=== PATIENT | female | born 1995 | race Caucasian/White ===

== ENCOUNTER 2022-03-23 06:00 | Day surgery (SDC) | payer BC ==
[2022-03-23] MEDS ORDERED: OXYMETAZOLINE HCL 0.05% 15ML NAS ONE (06:37)
[2022-03-23] MEDS ORDERED: Ringers Lactate 1,000 ML IV ONE (06:37)
[2022-03-23] MEDS: OXYMETAZOLINE HCL 0.05% 15ML NAS ONE ×2 (06:47→07:30)
[2022-03-23] MEDS ORDERED: LIDOCAINE 1% W/EPI 1:100,000 30 ML VIAL ONE (06:55)
[2022-03-23] MEDS ORDERED: Mastisol Adhesive Liq ONE (07:06)
[2022-03-23] MEDS ORDERED: CELECOXIB 100 MG CAPSULE ONE (07:10)
[2022-03-23] MEDS ORDERED: ACETAMINOPHEN 500 MG TAB ONE (07:11)
[2022-03-23] MEDS ORDERED: MIDAZOLAM HCL 2 MG/2 ML INJ ONE (07:14)
[2022-03-23 07:15] LABS: Urine Specific Gravity/Preg >1.030 (1.005-1.030)
[2022-03-23] MEDS ORDERED: LIDOCAINE 2% MPF 5 ML VIAL ONE (07:25)
[2022-03-23] MEDS ORDERED: dexAMETHasone 10 MG/ML VIAL ONE (07:25)
[2022-03-23] MEDS ORDERED: ONDANSETRON 4 MG/2 ML VIAL ONE ×2 (07:25→08:00)
[2022-03-23] MEDS ORDERED: propofoL 200 MG/20 ML VIAL IV ONE (07:25)
[2022-03-23] MEDS ORDERED: FENTANYL CITR 100 MCG/2 ML ONE (07:25)
[2022-03-23] MEDS ORDERED: KETOROLAC 30 MG/ML INJ ONE (07:47)
[2022-03-23] MEDS: FENTANYL CITR 100 MCG/2 ML ONE ×2 (07:57→08:02)
--- NOTE | 2022-03-23 07:59 | P.OP ---
Night Time Nanny: NONE,NONE Preoperative diagnosis: nasal fracture Postoperative diagnosis: same Primary procedure: closed nasal reduction without stablization Anesthesia: general Estimated blood loss: nil Specimen: none Findings: left laterally displaced NB, right mildly medial displaced NB Operative Technique: After adequate plane of anesthesia, the patient was positioned supine. The bilateral nasal cavity was packed with Afrin-soaked pledgets for several minutes to aid in hemostasis. The nose is examined and the right nasal fracture was noted to be significantly laterally displaced resulting in deformity of the dorsum. External pressure was applied to the nasal bone until a click was heard and palpated and inspection revealed adequate reduction of the fracture. With gentle palpation, the reduction was felt to be appropriate. With gentle palpation of the right side, the bone was mildly medially displaced. A Hurley elevator was placed within the right nasal cavity and used to reduce this bone fragment. Afrin-soaked pledgets were again applied to the nasal cavity to aid in hemostasis. After several minutes they were removed and the nasal cavity was examined. There was no significant bleeding. When the patient's reported history of allergy or sensitivity to adhesives, no external dressing was applied. The patient was then returned to care of anesthesia for awakening extubation by anesthesia and transportation to the recovery room in stable condition. Complications: None Implants: none Fluids & blood products: see anesthesia record Transferred to: Recovery Room Condition: Good
[2022-03-23 08:22] VITALS: BP 132/82; TEMP 97.5; O2SAT 96
[2022-03-23] MEDS ORDERED: TRAMADOL HCL 50 MG TAB ONE (08:30)
== END 2022-03-23 08:52 | disposition home or self-care (01) ==
LOC: OR 06:00
PROVIDERS: ATTEND Otolaryngology
PROC: 0NSBXZZ Reposition Nasal Bone, External Approach (ICD-10-PCS; principal; 2022-03-23 07:30)
DX: S02.2XXD Fracture of nasal bones, subsequent encounter for fracture with routine healing (principal); R03.0 Elevated blood-pressure reading, without diagnosis of hypertension; E66.3 Overweight
CPT/HCPCS: 81025; 21315; J2704; J2001; J2250; J3010 ×2; J1100; J7120; J2405 ×2

== ENCOUNTER 2022-08-20 12:16 | Day surgery (SDC) | payer BC ==
[2022-08-20] MEDS: FENTANYL CITR 100 MCG/2 ML ONE ×3 (12:20→14:50)
[2022-08-20] MEDS ORDERED: Ringers Lactate 1,000 ML IV ONE (12:47)
[2022-08-20 13:42] LABS: Urine Specific Gravity/Preg >1.030 (1.005-1.030)
[2022-08-20] MEDS ORDERED: LIDOCAINE 1% MPF 5 ML VIAL ONE (14:57)
[2022-08-20] MEDS ORDERED: propofoL 200 MG/20 ML VIAL IV ONE ×2 (14:57)
[2022-08-20] MEDS ORDERED: LIDOCAINE VISCOUS 2% SOLN 15 ML UDC ONE (14:57)
[2022-08-20 16:09] VITALS: O2SAT 100
[2022-08-20 16:12] VITALS: BP 129/83; TEMP 97.8
== END 2022-08-20 14:00 | disposition home or self-care (01) ==
LOC: OR 12:16
PROVIDERS: ATTEND Surgery
PROC: 0DB68ZX Excision of Stomach, Via Natural or Artificial Opening Endoscopic, Diagnostic (ICD-10-PCS; 2022-08-20)
PROC: 0DB38ZX Excision of Lower Esophagus, Via Natural or Artificial Opening Endoscopic, Diagnostic (ICD-10-PCS; 2022-08-20)
PROC: 0DB78ZX Excision of Stomach, Pylorus, Via Natural or Artificial Opening Endoscopic, Diagnostic (ICD-10-PCS; 2022-08-20)
PROC: 0DB28ZX Excision of Middle Esophagus, Via Natural or Artificial Opening Endoscopic, Diagnostic (ICD-10-PCS; 2022-08-20)
PROC: 0DB98ZX Excision of Duodenum, Via Natural or Artificial Opening Endoscopic, Diagnostic (ICD-10-PCS; principal; 2022-08-20 15:45)
DX: R10.13 Epigastric pain (principal); K21.9 Gastro-esophageal reflux disease without esophagitis; R11.2 Nausea with vomiting, unspecified; K29.50 Unspecified chronic gastritis without bleeding
CPT/HCPCS: 43239; 88312; 81025; 88305; J2704 ×2; J2001; J3010; J7120

== ENCOUNTER 2022-08-20 19:05 | Emergency (ER) | payer BC ==
--- OUTSIDE RECORDS SUMMARY | 2022-08-20 19:09 | XMS REPORT | Continuity of Care Document ---
:1995 Author Organization [facility] t Address [address] [place] [address] [place] [id number] Care Team Providers Name Role Phone Davion Allen Primary Care Physician ALEX PERKINS Attending Clinician Unavailable ALEX PERKINS Attending Clinician Unavailable SOLITARIO_Celina Attending Clinician Unavailable NICK HYMAN Attending Clinician Unavailable Doctor Unassigned, [place] Attending Clinician Unavailable GC_TNC_Lovitt_S Attending Clinician Unavailable BARBIE RAMOS Attending Clinician Unavailable NONE, AVAILABLE Attending Clinician Unavailable ERLORAON_R Admitting Clinician Unavailable GC_TNC_Lovitt_S Admitting Clinician Unavailable DO ANGEL LANDIN Admitting Clinician Unavailable Payers Payer Name Policy Type Policy Number Effective Date Expiration Date Dipti nevarez [place] [id number] 2021 (PPO) 00:00:00 BCBS 2 [id number] 2021 00:00:00 [place] [facility] [id number] 2021 00:00:00 Problems Condition Condition Condition Status Onset Resolution Last Treating Co mments Source Name Details Category Date Date Treatment Clinician Date Hyperinsul Hyperinsul Problem Active S weeny inism inism 07-30 Communi 00:00: ty 00 [facility] Clin[facility] Hyperinsul Hyperinsul Problem Active S weeny inar inar 07-30 Communi obesity Obesity 00:00: ty 00 [facility] Clinics Menstrual Menstrual Problem Active Swe shanel migraine Migraine 04-21 Commun i 00:00: ty 00 [facility]ospita l Clinics Gastroesop Gastroesop Problem Active S weeny hageal hageal 3-07 Communi reflux Reflux 00:00: ty disease Disease 00 Hospita with with l hiatal Hiatal Clinics hernia Hernia Vitamin D Vitamin D Problem Active Swe shanel deficiency Deficiency 2-06 Co mmuni 00:00: ty 00 [facility] Mixed Mixed Problem Active Iva hyperlipid Hyperlipid 2-06 Co mmuni emia emia 00:00: ty 00 [facility] Body mass Body Mass Problem Active Swe shanel index 30+ Index 30+ 2-06 Comm uni - obesity - Obesity 00:00: ty 00 [facility] Acanthosis Acanthosis Problem Active S weeny nigricans Nigricans 2-06 Comm uni 00:00: ty 00 [facility] Prediabete Prediabete Problem Active S gil s s 2-06 Communi 00:00: ty 00 [facility] Insulin Insulin Disease Active 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 00:00: - 00 Externa l Acanthosis Acanthosis Disease Active K elsey nigricans nigricans 4-08 Seyb old 00:00: - 00 Externa l History of History of Problem Active S weeny SARS-CoV-2 SARS-CoV-2 5-05 Co mmuni 00:00: ty 00 [facility] Pneumonia Pneumonia Problem Active Swe shanel caused by Caused by 5-05 Comm uni SARS-CoV-2 SARS-CoV-2 00:00: ty 00 [facility] Weight Weight Disease Active 2019-02 Cassandra gain gain 1-04 Seybold 00:00: - 00 Externa l Hyperlipid Hyperlipid Disease Active K elsey emia emia 8-24 Seybold 00:00: - 00 Externa l Body mass Body mass Disease Active Eric sey index index 7-09 Seybold 30.0-30.9, 30.0-30.9, 00:00: - adult adult 00 Externa l Bipolar Bipolar Disease Active Cassandra affective affective 6-23 Seyb old disorder, disorder, 00:00: - most most 00 Externa recent recent l episode episode mixed mixed Panic Panic Problem Active [facility] ([facility]F/LI V/SA) Otitis Otitis Problem Active 2016-[address] [facility] media media 1-21 [facility] (LUF/LI V/SA) Threatened Threatened Problem [facility] (LUF/LI V/SA) Threatened Threatened Problem [facility] l (LUF/LI V/SA) Dysfunctio Dysfunctio Problem Active [facility] eustachian eustachian Me moria tube tube l (LUF/LI V/SA) Allergies, Adverse Reactions, Alerts Allergy Allergy Status Severity Reaction(s) Onset Inactive Treating Comm ents Source Name Type Date Date Clinician NO KNOWN Drug Active Univers ALLERGIE Class ity [facility] IODINATE Allergy Active Hives Iva D to Communi CONTRAST substanc ty MEDIA e Hospita l Clinics STADOL Allergy Active Hallucinatio Swe shanel to ns Communi substanc ty e Hospita l Clinics Social History Social Habit Start Date Stop Date Quantity Comments Source Sexual orientation Cassandra Owens - External History of tobacco Cigarette Smoker Cassandra Owens use - External Gender identity Cassandra allen - External Cigarettes smoked 2022-07-31 2022-07-31 Cassandra Owens current (pack per 00:00:00 00:00:00 - Exter nal day) - Reported Cigarette 2022-07-31 2022-07-31 Cassandra Owens pack-years 00:00:00 00:00:00 - External History of Social 2022-07-31 2022-07-31 Cassandra Owens function 00:00:00 00:00:00 - External Sex Ass[birth year] At [birth year] Cassandra allen 00:00:00 00:00:00 - External Smoking Status Start Date Stop Date Source Never Smoker [facility] Tobacco smoking consumption [facility] Occasional tobacco smoker 2022-07-31 00:00:00 Jacob Owens - External Medications Ordered Filled Start Stop Current Ordering Indication Dosage Frequency Signature Comments Components Source Medication Medication Date Date Medication? Clinician (SIG) Name Name Rizatriptan Yes 5mg Take 0.5 Ke lsey Benzoate 10 6-16 tablets (5 Se ybold MG oral 15:28: mg total) - Tablet 04 by mouth Externa once as l needed (May repeat in 2 hours if unresolved . Do not exceed 30 mg in 24 hours.) Dexamethaso Yes [id number] Take 1 mg Cassandra ne 1 MG 6-16 dexamethas Seybol d oral Tablet 00:00: one at 11 - 00 PM and get Externa blood work l the following morning btw 8-9AM. ondansetron ondansetron No ondansetro Iva 4 mg 4 mg 6-15 n 4 mg Communi disintegrat disintegrat 00:00: disintegra ty ing tablet ing tablet 00 ting Hos ori DISSOLVE 1 DISSOLVE 1 tablet l TO 2 TO 2 DISSOLVE 1 Clinics TABLETS ON TABLETS ON TO 2 THE TONGUE THE TONGUE TABLETS ON EVERY 8 EVERY 8 THE TONGUE HOURS HOURS EVERY 8 HOURS Metformin 2022- No 500mg Take 1 Elaina ey HCl ER 500 08-2116 tablet Seybol d MG oral 00:00: 00:00 (500 mg - TABLET SR 00 :00 total) by Exter na 24 HR mouth l daily with dinner rizatriptan rizatriptan No rizatripta Iva 10 mg 10 mg n 10 mg Communi disintegrat disintegrat disintegra ty ing tablet ing tablet ting Hos ori DISSOLVE DISSOLVE tablet l ONE TABLET ONE TABLET DISSOLVE Clinics UNDER THE UNDER THE ONE TABLET TONGUE WITH TONGUE WITH UNDER THE OCCURENCE OCCURENCE TONGUE OF MIGRAINE OF MIGRAINE WITH OCCURENCE OF MIGRAINE valacyclovi valacyclovi No valacyclov Iva r 1 gram r 1 gram ir 1 gram Co mmuni tablet TAKE tablet TAKE tablet ty 1 TABLET BY 1 TABLET BY TAKE 1 Hospita MOUTH EVERY MOUTH EVERY TABLET BY l MORNING AND MORNING AND MOUTH Clinics 1 TABLET 1 TABLET EVERY EVERY EVERY MORNING EVENING FOR EVENING FOR AND 1 10 DAYS 10 DAYS TABLET EVERY EVENING FOR 10 DAYS dicyclomine dicyclomine No 1 TID dicyclomin Iva 20 mg 20 mg e 20 mg Communi tablet Take tablet Take tablet ty 1 tablet 3 1 tablet 3 Take 1 H ospita times a day times a day tablet 3 l by oral by oral times a Clinic s route. route. day by oral route. pantoprazol pantoprazol No 1 Q1D pantoprazo Iva e 40 mg e 40 mg le 40 mg Commu ni tablet,alfonso tablet,alfonso tablet,del ty yed release yed release ayed H ospita Take 1 Take 1 release l tablet tablet Take 1 Clinics every day every day tablet by oral by oral every day route. route. by oral route. dicyclomine dicyclomine No dicyclomin Iva 20 mg 20 mg e 20 mg Communi tablet TAKE tablet TAKE tablet ty 1 TABLET BY 1 TABLET BY TAKE 1 Hospita MOUTH THREE MOUTH THREE TABLET BY l TIMES DAILY TIMES DAILY MOUTH Clinics THREE TIMES DAILY Maxalt-COMPUTER TECHNICAL SUPPORT SPECIALIST Maxalt-COMPUTER TECHNICAL SUPPORT SPECIALIST No Maxalt-COMPUTER TECHNICAL SUPPORT SPECIALIST Iva 10 mg 10 mg 10 mg Communi disintegrat disintegrat disintegra ty ing tablet ing tablet ting Hos ori 1 tab 1 tab tablet 1 l sublingual sublingual tab Cli nics with with sublingual occurence occurence with of of occurence migraine. migraine. of migraine. pantoprazol pantoprazol No pantoprazo Iva e 40 mg e 40 mg le 40 mg Commu ni tablet,alfonso tablet,alfonso tablet,del ty yed release yed release ayed H ospita TAKE 1 TAKE 1 release l TABLET BY TABLET BY TAKE 1 Cli nics MOUTH EVERY MOUTH EVERY TABLET BY DAY DAY MOUTH EVERY DAY Topamax 50 Topamax 50 No Topamax 50 Iva mg tablet 1 mg tablet 1 mg tablet Communi tablet when tablet when 1 tablet ty migraine migraine when Hospita occurs occurs migraine l occurs Clinics Actos 15 mg Actos 15 mg No 1 Q1D Actos 15 Iva tablet Take tablet Take mg tablet Communi 1 tablet 1 tablet Take 1 ty every day every day tablet Hos ori by oral by oral every day l route. route. by oral Clinics route. dicyclomine dicyclomine No dicyclomin Iva 20 mg 20 mg e 20 mg Communi tablet TAKE tablet TAKE tablet ty 1 TABLET BY 1 TABLET BY TAKE 1 Hospita MOUTH THREE MOUTH THREE TABLET BY l TIMES DAILY TIMES DAILY MOUTH Clinics THREE TIMES DAILY esomeprazol esomeprazol No esomeprazo Iva e magnesium e magnesium le C ommuni 40 mg 40 mg magnesium ty capsule,del capsule,del 40 mg Hospita ayed ayed capsule,de l release release layed Clinics release famotidine famotidine No famotidine Iva 20 mg 20 mg 20 mg Communi tablet tablet tablet ty Hospita l Clinics NuLev 0.125 NuLev 0.125 No NuLev Iva mg mg 0.125 mg Communi disintegrat disintegrat disintegra ty ing tablet ing tablet ting Hos ori tablet l Clinics pantoprazol pantoprazol No pantoprazo Iva e 40 mg e 40 mg le 40 mg Commu ni tablet,alfonso tablet,alfonso tablet,del ty yed release yed release ayed H ospita TAKE 1 TAKE 1 release l TABLET BY TABLET BY TAKE 1 Cli nics MOUTH EVERY MOUTH EVERY TABLET BY DAY DAY MOUTH EVERY DAY penicillin penicillin No 1 Q8H penicillin Iva V potassium V potassium V C ommuni 500 mg 500 mg potassium ty tablet Take tablet Take 500 mg Hospita 1 tablet 1 tablet tablet l every 8 every 8 Take 1 Clinics hours by hours by tablet oral route oral route every 8 for 7 days. for 7 days. hours by oral route for 7 days. rizatriptan rizatriptan No rizatripta Iva 10 mg 10 mg n 10 mg Communi disintegrat disintegrat disintegra ty ing tablet ing tablet ting Hos ori DISSOLVE DISSOLVE tablet l ONE TABLET ONE TABLET DISSOLVE Clinics UNDER THE UNDER THE ONE TABLET TONGUE WITH TONGUE WITH UNDER THE OCCURENCE OCCURENCE TONGUE OF MIGRAINE OF MIGRAINE WITH OCCURENCE OF MIGRAINE Topamax 50 Topamax 50 No Topamax 50 Iva mg tablet 1 mg tablet 1 mg tablet Communi tablet when tablet when 1 tablet ty migraine migraine when Hospita occurs occurs migraine l occurs Clinics valacyclovi valacyclovi No valacyclov Iva r 1 gram r 1 gram ir 1 gram Co mmuni tablet TAKE tablet TAKE tablet ty 1 TABLET BY 1 TABLET BY TAKE 1 Hospita MOUTH EVERY MOUTH EVERY TABLET BY l MORNING AND MORNING AND MOUTH Clinics 1 TABLET 1 TABLET EVERY EVERY EVERY MORNING EVENING FOR EVENING FOR AND 1 10 DAYS 10 DAYS TABLET EVERY EVENING FOR 10 DAYS amoxicillin amoxicillin Yes [facility] (LUF[facility] V/SA) Citalopram Citalopram Yes 20mg [facility] 20 MG Oral 20 MG Oral Anthony es Tablet Tablet Memoria l (LUF/LI V/SA) prednisone prednisone Yes [facility] (LUF/LI V/SA) Yes 1tab-ca QD [facility] 1[facility]1 [facility] (LUF/LI V/SA) Vital Signs Vital Name Observation Time Observation Value Comments Source Body height 2022-07-31 20:06:00 170.2 cm Cassandra Resendez eybold - External Body weight 2022-07-31 20:06:00 97.977 kg Cassandra eybold - External BMI 2022-07-31 20:06:00 33.83 [facility] Diastolic 2022-07-30 00:00:00 74 mm[Hg] [facility] Height 2022-07-30 00:00:00 67 [in_i] [facility] s BMI (Body Mass 2022-07-30 00:00:00 33.9 kg/m2 [facility]) [facility] s BP Systolic 2022-07-30 00:00:00 124 mm[Hg] [facility] s Body Weight 2022-07-30 00:00:00 3464 [oz_av] [facility] s BP Diastolic 2022-05-19 00:00:00 74 mm[Hg] [facility] s Height 2022-05-19 00:00:00 67 [in_i] [facility] s BMI (Body Mass 2022-05-19 00:00:00 34.6 kg/m2 [facility]) [facility] s BP Systolic 2022-05-19 00:00:00 128 mm[Hg] [facility] s Body Weight 2022-05-19 00:00:00 3536 [oz_av] [facility] s BP Diastolic 2022-04-21 00:00:00 70 mm[Hg] [facility] s Height 2022-04-21 00:00:00 67 [in_i] [facility] s BMI (Body Mass 2022-04-21 00:00:00 34 kg/m2 [facility]) [facility] s BP Systolic 2022-04-21 00:00:00 124 mm[Hg] [facility] s Body Weight 2022-04-21 00:00:00 3472 [oz_av] [facility] s BP Diastolic 2022-03-24 00:00:00 78 mm[Hg] [facility] s Height 2022-03-24 00:00:00 67 [in_i] [facility] s BMI (Body Mass 2022-03-24 00:00:00 33.8 kg/m2 [facility]) [facility] s BP Systolic 2022-03-24 00:00:00 122 mm[Hg] [facility] s Body Weight 2022-03-24 00:00:00 3456 [oz_av] [facility] s Body Temperature 2017-12-26 06:49:00 99 F [facility] (LUF/FABY/SA) Pulse Rate 2017-12-26 06:49:00 116 /min [facility] (LUF/FABY/SA) Respiratory Rate 2017-12-26 06:49:00 14 /min [facility] (LUF/FABY/SA) O2% BldC Oximetry 2017-12-26 06:49:00 98 % [facility] (LUF/FABY/SA) BP Systolic 2017-12-26 06:49:00 117 mm[Hg] [facility] (LUF/AFBY/SA) BP Diastolic 2017-12-26 06:49:00 71 mm[Hg] [facility] (LUF/FABY/SA) Height 2017-12-26 06:49:00 67 in [facility] (LUF/FABY/SA) Weight Measured 2017-12-26 06:49:[address] [facility] S t [facility] (LUF/FABY/SA) BMI (Body Mass 2017-12-26 06:49:00 33.2 [facility] (LUF/FABY/SA) O2% BldC Oximetry 2017-05-28 16:04:00 100 % [facility] (LUF/FABY/SA) BP Systolic 2017-05-28 16:04:00 113 mm[Hg] [facility] (LUF/FABY/SA) BP Diastolic 2017-05-28 16:04:00 71 mm[Hg] [facility] (LUF/FABY/SA) Body Temperature 2017-05-28 15:01:00 98.2 F [facility] (LUF/FABY/SA) Respiratory Rate 2017-05-28 15:00:00 32 /min [facility] (LUF/FABY/SA) Weight Measured 2017-05-28 15:00:00 198.41 lbs [facility] (LUF/FABY/SA) Body Temperature 2017-01-09 23:38:00 97.7 F [facility] (F/FABY/SA) Respiratory Rate 2017-01-09 23:38:00 20 /min [facility] (F/FABY/SA) O2% BldC Oximetry 2017-01-09 23:38:00 100 % [facility] (LUF/FABY/SA) BP Systolic 2017-01-09 23:38:00 127 mm[Hg] [facility] (LUF/FABY/SA) BP Diastolic 2017-01-09 23:38:00 70 mm[Hg] [facility] (F/FABY/SA) Height 2017-01-09 23:38:00 67 in [facility] (F/FABY/SA) Weight Measured 2017-01-09 23:38:00 188.38 lbs [facility] (LUF/FABY/SA) BMI (Body Mass 2017-01-09 23:38:00 29.5 [facility] (LUF/FABY/SA) Body Temperature 2017-01-05 12:43:00 98.2 F [facility] (LUF/FABY/SA) Respiratory Rate 2017-01-05 12:43:00 20 /min [facility] (F/FABY/SA) O2% BldC Oximetry 2017-01-05 12:43:00 100 % [facility] (LUF/FABY/SA) BP Systolic 2017-01-05 12:43:00 117 mm[Hg] [facility] (LUF/FABY/SA) BP Diastolic 2017-01-05 12:43:00 65 mm[Hg] [facility] (LUF/FABY/SA) Height 2017-01-05 12:43:00 67 in [facility] (F/FABY/SA) Weight Measured 2017-01-05 12:43:[address] [facility] Dipti ace [facility] (LUF/FABY/SA) BMI (Body Mass 2017-01-05 12:43:00 28.8 [facility]) [facility] (F/FABY/SA) Procedures Procedure Date / Time Performed Performing Clinician [facility] e REFERRAL- 2022-06-15 05:01:00 Doctor Unassigned, No [facility] REQUEST/RESPONSE Name [facility] MRI, brain, w/wo 2022-04-21 00:00:00 [facility] ASSIGNMENT OF BENEFITS 2021-04-19 21:06:23 Doctor Unassigned, No [facility] Name [facility] Sinus Surgery [facility] Plan of Care Planned Activity Planned Date Details Comments Source Diagnostic Test 2022-04-21 MIKO (antinuclear [facility] ommunity Pending 00:00:00 antibodies) [facility] s screen, serum [code = MIKO (antinuclear antibodies) screen, serum] Diagnostic Test 2022-04-21 insulin Ab titer, [facility] Pending 00:00:00 serum [facility], serum] Future [facility]ment 2022-10-30 [facility] [address] [facility] [address], [place] [address] Encounters Start End Encounter Admission Attending Care Care Encounter Source Date/Time Date/Time Type Type Clinicians Facility Department ID 2022-08-12 2022-08-[address] [facility] [id number] Iva 00:00:00 00:00:00 0629 Commun i ty Hosp[facility] 2022-07-31 2022-07-31 Outpatient NICK HYMAN [id number] Cassandra 15:15:00 15:15:00 Seybol d 2022-07-30 2022-07-30 Davion [facility] [place] - Iva 15 Iva 00:00:00 00:00:00 [facility] - ty DO: [address] Hospit a [facility] [address], HOSPITAL Clinic s [place], [place], [address] SOLITARIO , Ph. [phone] 2022-07-13 2022-07-13 [address] ERICKSON_R [facility] [id number] Iva 00:00:00 00:00:00 0615 Commun i ty Hospita l Clinics 2022-07-03 2022-07-03 Outpatient ERICKSON_R [place] [id number] Iva 00:00:00 00:00:00 0520 Commun i ty Hospita l Clinics 2022-06-15 2022-06-15 Orders Doctor IZABELA [id number] Univers 00:00:00 00:00:00 Only Unassigned, ANNIE [id number] ity [place] [facility] [id number] David as [phone] [place] [address] [place] 2022-05-30 2022-05-[address] [facility] 1285 Iva 00:00:00 00:00:00 0415 Commun i ty Hospita l Clinics 2022-05-28 2022-05-[address] [facility] 1285 Iva 00:00:00 00:00:00 0413 Commun i ty Hospita l Clinics 2022-05-19 2022-05-[address] 1285 Iva 00:00:00 00:00:00 0404 Commun i ty Hospita l Clinics 2022-05-19 2022-05-19 Davion [facility] [place] - Iva 04 Iva 00:00:00 00:00:00 [facility] - ty DO: [address] [facility] [place], [place], [address] SOLITARIO , Ph. 2022-05-08 2022-05-[address] 1285 Iva 00:00:00 00:00:00 0324 Commun i ty Hospita l Clinics 2022-04-22 2022-04-22 Outpatient GC_TNC_Lovi PRIV PRIV [id number] Privia 00:00:00 00:00:00 tt_S [id number] Medica l 2022-04-21 2022-04-[address] 1285 Iva 00:00:00 00:00:00 0307 Commun i ty Hospita l [facility] 2022-04-21 2022-04-21 Davion [facility] [place] - Iva Iva 00:00:00 00:00:00 [facility] - ty DO: [address] [facility] [place], [address] SOLITARIO , Ph. [phone] 2022-03-30 2022-03-[address] [facility]R [facility] 1285 Iva 00:00:00 00:00:00 0303 Commun i ty Hospita l [facility] 2022-03-24 2022-03-24 Davion [facility] [place] - Iva 07 Iva 00:00:00 00:00:00 [facility] - ty DO: [address] [facility] [place], [address] SOLITARIO , Ph. 2022-03-23 2022-03-[address] 1285 Iva 00:00:00 00:00:00 0206 Commun i ty Hospita l Clinics 2022-03-23 2022-03-[address] [facility] 1285 Iva 00:00:00 00:00:00 0207 Commun i ty Hospita l Clinics 2022-03-23 2022-03-23 Davion [facility] [place] - Iva Iva 00:00:00 00:00:00 [facility] DO: [address] Hospit a [facility] [address], HOSPITAL Clinic s [place], [place], [address] SOLITARIO , Ph. 2022-03-16 2022-03-[address] [facility] [id number] Iva 00:00:00 00:00:00 0130 Commun i ty Hospita l Clinics 2021-12-01 2021-12-01 Outpatient [facility] [id number] Julian 13:57:13 13:57:13 1017 F Mat 2021-04-19 2021-04-19 Outpatient R RACHEL [facility] [id number] Univers 15:20:00 15:20:00 BARBIE rojas [facility] 2021-04-19 2021-04-19 Orders Doctor GURROLA [id number] 00:00:00 00:00:00 Only Unassigned, ANNIE [id number] ity [place] [facility] [id number] David as [phone] [address] 2018-05-06 2018-05-06 Inpatient NONE, [facility] [place] [id number] 10:05:00 23:59:00 AVAILABLE [facility] [address] (LUF/LI ALVERTO, V/[place]) [place] [id number] 2017-12-26 2017-12-26 Inpatient E MUSHTAQ, [facility] [place] [id number] 06:35:00 08:47:00 ANGEL [facility] [address] (LUF/LI [place], V/[place]) [place] [id number] 2017-05-28 2017-05-28 PANIC MUSHTAQ, [facility] [place] [id number] 14:49:00 16:15:00 DISORDER ANGEL [facility] [address]LUF/[address] [place], [place]) [place] [address] 2017-01-09 2017-01-10 OTITIS AMRIT [place]UNIGA [place] [id number] 23:24:00 00:41:00 MEDIA [facility] UNSPECIFIE [place], [facility] D [address]LUF[address] [place], [place]) [place] [address] 2017-01-05 2017-01-05 ACUTE MUSHTAQ, [place] [id number] 12:30:00 12:54:00 [facility] UNSPECIE [address] (LUF/LI [address], V/[place]) [place] [address] Results Test Description Test Time Test Comments Results Result Comments Source RPR 2021-11-06 04:52:05 Test Item Value Reference Range Interpretation Comme nts RPR RESULT (test code = 3501) NON-REACTIVE NON-REACTIVE RPR TITER (test code = 3500) NOT INDIC. TITER NOT INDIC. HIV 1/2 4TH GEN, RFLX [id number] 03:29:12 Test Item Value Reference Range Interpretation Comments HIV 1/2 4TH GEN, RFLX CONF (test NON-REACTIVE NON-REACTIVE code = 3514) HEPATITIS PANEL, [id number] 03:29:12 Test Item Value Reference Range Interpretation Comments HEPATITIS A IgM (test NON-REACTIVE NON-REACTIVE code = 43915) HEPATITIS B CORE IgM NON-REACTIVE NON-REACTIVE (test code = 4644) HEPATITIS B SURF AG NON-REACTIVE NON-REACTIVE (test code = 2739) HEPATITIS C ANTIBODY NON-REACTIVE NON-REACTIVE (test code = 4675) INTERPRETATION (NOTE) Hepatitis A HEPATITIS A: (test serology shows no code = 2552) evidence of acu te hepatitis A. INTERPRETATION (NOTE) Hepatitis B HEPATITIS B: (test serology shows no code = 70389) evidence of ac pokagon hepatitis B and no indication of exposure to hepatitis B vir us in the previous si xto eight months. INTERPRETATION (NOTE) Hepatitis C HEPATITIS C: (test serology shows no code = 34180) evidence of ex posure to hepatitisC v irus at this time. I t can take up to 12 m onths after exposure tothe hepatitis C vir us for antibodies to become detectab le in the blood in ce rtain patients. UNLES S OTHERWISE INDIC ATED, ALL TESTING PERFORMED [facility] LABORATORIES, [place] [address] [place] [address] [facility] DIRECTOR: BETTY BETHEA M.D. CLIA NUMBER [id number]. [id number] MUMPS IgG AND [id number] 23:37:36 Test Item Value Reference Range Interpretation Comments MUMPS VIRUS IgG 49.8 AU/mL INTERPRETIVE INFORMATION: (test code = Mumps Ab, IgG b y RODRIGO 8.9 06035) AU/mL or less . ... Negative - No s ignificant level of detect able IgG mumps virus ant ibody 9.0-10.9 AU/mL ....... Equivocal - Rep eat testing in 10-1 4 days may be helpful 11.0 AU/mL or greater: Positi ve - IgG antibody to mum ps virus detected, which may indicate a curr ent or past exposure/ immunization to mumps virus. The best evidence for current inf ection is a significant c hange on two appropriate ly timed specimens, wher e both tests are done in the same laboratory at the same time. TEST ING PERFORMED AT [facility], [place] [address], [place] [address] [place] [id number] CLIA N O. [id number] MUMPS VIRUS IgM 0.52 IV See_Comment INTERPRETIVE INFORMATION: (test code = 4587) Mumps Vir us Antibody, IgM 0.79 IV or less : Negative - No significan t level of detectable IgM antibody to mumps virus. 0.80 - 1.20 IV: Equivo ambrosio - Borderline leve ls of IgM antibody to mum ps virus. Repeat testing in 10-14 days may be hel pful. 1.21 IV or greater: Positive - Presence of IgM antibody to mumps virus detected, which may indic ate a current or rece nt infection. Pastor tuan, low levels of IgM a ntibody may occasionall y persist for more than 12 months post-infection or immunization. T ESTING PERFORMED AT [facility], [place] [address] [id number] [place] [id number] HUSAM N O. [id number] [Aut omated message] The sy stem which generated this result transmitted ref erence range: <=0.79. The reference range was not used to interpr et this result as normal/abnormal . VARICELLA ZOSTER [id number] 17:03:17 Test Item Value Reference Range Interpretation Comments VARICELLA ZOSTER IgG 351 INDEX SEE BELOW INTERP RETATION VZV IgG (test code = 38424) NEGATIVE . . . . . . . . . . . . INDEX < 135 EQUIVOCAL. . . . . . . . . . . . INDEX 1 35-164 NOTE: CONSIDER RETESTING IN A CLINICALLY SUITABLE PERIOD OF TIME, NO SOONER THAN 1-2 WEEKS. POSITIVE . . . . . . . . . . . . INDEX > =165 RUBEOLA IgG [id number] 17:03:17 Test Item Value Reference Range Interpretation Comments RUBEOLA IgG 20.8 AU/ML SEE BELOW INTERPRETATION RUBEOLA ANTIBODY (test code IgG NEGA TIVE . . . . . . = 87715) . . . . . . AU/ ML <13.5 EQUIVOCAL. . . . . . . . . . . . AU/ML 1 3.5-16.4 NOTE: CONSIDER RETESTING IN A CLINICALLY SUITABLE PERIOD OF TIME, NO SOONER THAN 1-2 WEEKS. POSITIVE . . . . . . . . . . . . AU/ML > =16.5 RUBELLA ANTIBODY [id number] 04:26:31 Test Item Value Reference Range Interpretation Comments RUBELLA ANTIBODY 15 IU/ML SEE BELOW INTERPRETA TION RUBELLA SCREEN (test code = IgG 4600) NON-REACTIVE/NO N-IMMUNE . . . . . . . IU/ ML <10 REACTIVE/IMMUNE . . . . . . . . . . . IU/ ML >=10 RUBELLA IgG INTERP REACTIVE REACTIVE UNLESS OTHERWISE (test code = 08230) INDICATE D, ALL TESTING PERFORMED [facility] [employer] [address] [place] [address] [place] [place] DIRECTOR: BETTY BETHEA M.D. CLIA NUMBER [id number] [facility] [place]. [id number] HEPATITIS C [id number] 03:43:29 Test Item Value Reference Range Interpretation Comments HEPATITIS C ANTIBODY (test code NON-REACTIVE NON-REACTIVE = 4675) ED2 [id number] 16:56:00 Test Item Value Reference Range Interpretation Comments WBC (test code = WBC) 16.5 10\S\9/L 3.5-10.0 H LY% (test code = LY) 10.5 % 15.0-50.0 L MIDS% (test code = MIDS) 3.6 % 2.0-15.0 Granulocytes % (test code = 85.9 % 35.0-80.0 H GRA%) Lymphocytes (test code = 1.7 10\S\9/L 0.5-5.0 LYMPH) MID (test code = MID) 0.6 10\S\9/L 0.1-1.5 Granulocytes (test code = 14.2 10\S\9/L 1.2-8.0 H GRAN) RBC (test code = RBC) 4.74 10\S\12/L 3.50-5.50 Hemoglobin (test code = HGB) 13.2 gm/dl 11.5-16.5 Hematocrit (test code = HCT) 37.6 % 35.0-55.0 MCV (test code = MCV) 79.2 fL 75.0-100.0 MCH (test code = MCH) 27.8 pg 25.0-35.0 MCHC (test code = MCHC) 35.1 gm/dl 31.0-38.0 RDW % (test code = RDW%) 13.4 % 11.0-16.0 Platelet (test code = PLT) 294 10\S\9/L 100-400 MPV (test code = MPV) 9 fL 8.0-11.0 A [facility]SBECKIP A [id number] 11:03:00 Test Item Value Reference Range Interpretation Comments Strep A culture (test code = STRAC) Negative Negative N [facility]ED[facility] [id number] 08:29:00 Test Item Value Reference Range Interpretation Comments Sodium (test code = NA) 139 mmol/l 128-145 Potassium (test code = K) 3.5 mmol/l 3.6-5.1 L CO2 (test code = CO2) 24 mmol/l 18-33 Chloride (test code = CL) 102 mmol/l 98-108 Glucose (test code = GLU) 96 mg/dl 73-118 Calcium (test code = CALC) 9.5 mg/dl 8.0-10.3 BUN (test code = BUN) 10 mg/dl 7-22 Creatinine (test code = CREA) 1.0 mg/dl 0.6-1.2 [facility] [id number] 08:18:02 Procedure: ED2 CT NECK W/CONTRAST Exam Date: 12/26/2017 7:31 AMOrdering Provider: BUSTER Solisinical Indication: Sore throat, right greater than left. Evaluate forperitonsillar abscess.Comparison: None.Technique: CT NECK W/CONTRAST. All CT scans are performed using doseoptimization techniques as appropriate to a performed exam including automatedexposure control and/or standardized protocols for targeted exams where dose ismatched to indication/reason for exam/patient size.Findings:Enlargement and heterogeneous enhancement of the palatine tonsils withoutdiscrete fluid collection. No prevertebral soft tissue thickening. Imagedportions of the brain are unremarkable. Imaged globes are unremarkable. Mildprominent bilateral cervical lymph nodes, right greater than left, likelyreactive.Vasculature thereis unremarkable. Thyroid gland is normal. Visualized lungapices are clear.Osseous structures intact.No epidural collection.Impression: Enlarged and heterogeneous enhancement of the palatine tonsilscompatible with tonsillitis. No peritonsillar abscess , although smallintratonsillar microabscesses not excluded. Reactive cervical lymph nodes.This final report was electronically signed by Dr Miguel Jack DO 12/26/20178:11 AMDictated By: HERBERT JACKINDate: 12/26/2017 08:11[facility] , [id number] 08:13:00 Test Item Value Reference Range Interpretation Comments (Urine) (test code = Negative PREGU) [facility] STREP [id number] 07:13:00 Test Item Value Reference Range Interpretation Comments Strep A Screen (test code = SAS) Negative Negative N [facility]U [id number] 07:13:00 Test Item Value Reference Range Interpretation Comments Flu A Screen (test code = FLUA) Negative Flu B Screen (test code = FLUB) Negative [facility] Date/Time Note Provider Source 2017-12-26 08:47:00-00:00 [facility] Discharge Instructions 2 (LUF/LI V/SA) Discharge Diagnosis acute pharyngitis Important Information Consult your physician or re turn to the Emergency Department immediately if worse, if not better as expected, or if any problems arise. Follow Up Care Yes Important Information Please understand that you have received care on ly on an emergency basis. If your condition does not i mprove, you should call your personal physician for follow-up care. If you do not have a physician, you may call the referred physician listed. If you have questions about your care or these discharge instructions, you may call the Emergency Department. Please take your discharge paperwork with you to any follow-up appointments. Follow Up Care Patient To Schedule Follow-Up With: Primary Care Physician Medication While you were in the Emerge ncy Department, you were given medication that may cause sedation. You may feel sleepy or light headed. Do not drive for 4-6 hours after discharge. DO NOT drink alcohol, drive or operate machinery if taking medicines which cause drowsiness or make you feel light-headed. Activity Level As tolerated, unrestricted Diet Regular Prescriptions Given Via: Printed and given to patient/caregiver. Patient Teaching Patient education provided 2017-05-28 16:15:00-00:00 [facility] Discharge Instructions 2 (LUF/LI V/SA) Discharge Diagnosis panic attack Important Information Consult your physician or re turn to the Emergency Department immediately if worse, if not better as expected, or if any problems arise. Please understand that you have received care on ly on an emergency basis. If your condition does not i mprove, you should call your personal physician for follow-up care. If you do not have a physician, you may call the referred physician listed. If you have questions about your care or these discharge instructions, you may call the Emergency Department. Please take your discharge paperwork with you to any follow-up appointments. Follow Up Care Patient To Schedule Follow-Up With: Primary Care Physician Activity Level As tolerated, unrestricted Patient Teaching Patient education provided 2017-01-10 00:41:00-00:00 [facility] Discharge Instructions 2 (LUF/LI V/SA) Discharge Diagnosis EUSTACHIAN TUBE DYSFUNCTION Important Information Consult your physician or re turn to the Emergency Department immediately if worse, if not better as expected, or if any problems arise. Follow Up Care Yes Important Information Please understand that you have received care on ly on an emergency basis. If your condition does not i mprove, you should call your personal physician for follow-up care. If you do not have a physician, you may call the referred physician listed. If you have questions about your care or these discharge instructions, you may call the Emergency Department. Please take your discharge paperwork with you to any follow-up appointments. Follow Up Care Patient To Schedule Follow-Up With: Primary Care Physician Prescriptions Given Via: N/A Patient Teaching Patient education provided 2017-01-05 12:54:00-00:00 [facility] Discharge Instructions 2 (LUF/LI V/SA) Discharge Diagnosis UPPER RESPIRATORY INFECTION Important Information Consult your physician or re turn to the Emergency Department immediately if worse, if not better as expected, or if any problems arise. Follow Up Care Yes Important Information Please understand that you have received care on ly on an emergency basis. If your condition does not i mprove, you should call your personal physician for follow-up care. If you do not have a physician, you may call the referred physician listed. If you have questions about your care or these discharge instructions, you may call the Emergency Department. Please take your discharge paperwork with you to any follow-up appointments. Follow Up Care Patient To Schedule Follow-Up With: Primary Care Physician Prescriptions Given Via: Printed and given to patient/caregiver. Patient Teaching Patient education provided
[2022-08-20] MEDS ORDERED: METOCLOPRAMIDE 10 MG/2mL INJ ONE (19:47)
[2022-08-20] MEDS ORDERED: NA CHLORIDE 0.9% 1,000 ML ONE (19:47)
[2022-08-20] MEDS ORDERED: ONDANSETRON 4 MG/2 ML VIAL ONE (19:47)
[2022-08-20] MEDS ORDERED: DIPHENHYDRAMINE 50 MG/ML VIAL ONE (19:47)
[2022-08-20 19:59] LABS: Absolute Lymphocytes (CBC) 2.9 K/uL (0.7-4.9); Hematocrit 39.1 % (36.0-45.0); MCV 80.3 fL (80-100); MPV 9.3 fL (7.6-11.3); RBC Red Blood Cell Count 4.87 M/uL (3.86-4.86)
--- NOTE | 2022-08-20 20:08 | RAD REPORT ---
EXAM DESCRIPTION: CT - Head Brain Wo Cont - 08/20/2022 7:53 pm CLINICAL HISTORY: HEADACHE COMPARISON: No comparisons TECHNIQUE: Noncontrast head CT images were obtained without IV contrast. Multiplanar reformats were generated and reviewed. All CT scans are performed using dose optimization technique as appropriate and may include automated exposure control or mA/KV adjustment according to patient size. FINDINGS: No intracranial hemorrhage, mass, or edema. Midline structures are unremarkable. Normal ventricular caliber for age. Villalta-white matter differentiation is preserved, without evidence of acute infarct. No abnormal extra- axial fluid collections. Mastoid air cells and visualized portions of the paranasal sinuses are clear. No acute bony findings. IMPRESSION: No evidence of an acute intracranial process.
[2022-08-20 20:11] LABS: Potassium 3.4 mEq/L (3.5-5.1)
--- NOTE | 2022-08-20 21:16 | RAD REPORT ---
EXAM DESCRIPTION: Yesika Single View08/20/2022 8:46 pm CLINICAL HISTORY: CHEST PAIN COMPARISON: No comparisons TECHNIQUE: Portable AP view of the chest. FINDINGS: The lungs are clear. No pneumothorax or effusion. The cardiomediastinal contours are unre markable. IMPRESSION: No acute cardiopulmonary process.
[2022-08-20 21:18] LABS: SARS-CoV-2 Antigen Rapid Res Negative (Negative)
--- NOTE | 2022-08-20 22:37 | EDPHYS ---
Physician Documentation [facility] Name: Soledad Garcia Age: 27 yrs Sex: Female : 1995 Arrival Date: 08/20/2022 Time: 19:05 Bed 10 Private MD: ED Physician Venkat Boucher HPI: 08/20 19:35 This 27 yrs old Female presents to ER via Ambulatory with complaints of Sore Throat, cp Headache, Facial Pain, Chest Pain. 19:35 The patient complains of pain to the top of head and forehead. The patient describes cp the headache as aching. 19:35 Onset: The symptoms/episode began/occurred this morning, prior to having endoscopy cp performed by DR Vasquez. Patient reports she was given medicine for headache prior to procedure that helped, but headache returned once she returned home after waking from nap. Patient reports sore throat and chest pain. 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 - Social history:: Smoking status: Reported history of juuling and/or vaping. Patient uses alcohol, only on a social basis. ROS: 19:40 Constitutional: Negative for body aches, chills, fever, poor PO intake. cp 19:40 Eyes: Negative for injury, pain, redness, and discharge. cp 19:40 ENT: Positive for sore throat, Negative for drainage from ear(s), ear pain, difficulty swallowing, difficulty handling secretions. 19:40 Cardiovascular: Positive for chest pain, Negative for edema, palpitations. 19:40 Respiratory: Negative for cough, shortness of breath, wheezing. 19:40 Abdomen/GI: Positive for nausea, Negative for abdominal pain, vomiting, diarrhea, constipation. 19:40 Neuro: Positive for headache, Negative for altered mental status, dizziness, weakness. 19:40 All other systems are negative. Exam: 19:45 Constitutional: The patient appears in no acute distress, alert, awake, cp non-diaphoretic, non-toxic, well developed, well nourished, obese. 19:45 Head/Face: Normocephalic, atraumatic. cp 19:45 Eyes: Periorbital structures: appear normal, Conjunctiva: normal, no exudate, no injection, Sclera: no appreciated abnormality, Lids and lashes: appear normal, bilaterally. 19:45 ENT: External ear(s): are unremarkable, Nose: is normal, Mouth: Lips: moist, Oral mucosa: pink and intact, moist, Posterior pharynx: is normal, airway is patent, no erythema, no exudate. 19:45 Neck: ROM/movement: is normal, is supple, without pain, no range of motions limitations, no meningismus, no nuchal rigidity. 19:45 Chest/axilla: Inspection: normal. 19:45 Cardiovascular: Rate: normal, Rhythm: regular. 19:45 Respiratory: the patient does not display signs of respiratory distress, Respirations: normal, no use of accessory muscles, no retractions, labored breathing, is not present, Breath sounds: are clear throughout, no decreased breath sounds, no stridor, no wheezing. 19:45 Abdomen/GI: Inspection: abdomen appears normal, Bowel sounds: active, all quadrants, Palpation: abdomen is soft and non-tender, in all quadrants. 19:45 Back: pain, is absent, ROM is normal. 19:45 Neuro: Orientation: to person, place \T\ time. Mentation: is normal, Cerebellar function: is grossly normal, Motor: moves all fours, strength is normal, Sensation: is normal. 20:40 ECG was reviewed by the Attending Physician. cp Vital Signs: 19:11 BP 139 / 99; Pulse 95; Resp 18 S; Temp 98.6(O); Pulse Ox 100% on R/A; Weight 99.79 kg lg3 (R); Height 5 ft. 7 in. (R); Pain 7/10; 20:36 BP 139 / 94; Pulse 90; Resp 16; Temp 98.4(O); Pulse Ox 100% on R/A; sg5 19:11 Body Mass Index 34.46 (99.79 kg, 170.18 cm) lg3 19:11 Pain Scale: Adult lg3 MDM: 19:20 Patient medically screened. cp 22:35 Data reviewed: vital signs, nurses notes, lab test result(s), EKG, radiologic studies, cp CT scan, plain films. 22:35 Differential diagnosis: migraine, pneumonia, cardiac arrythmia. I considered the cp following discharge prescriptions or medication management in the emergency department Medications were administered in the Emergency Department. See MAR. Counseling: I had a detailed discussion with the patient and/or guardian regarding: the historical points, exam findings, and any diagnostic results supporting the discharge/admit diagnosis, lab results, radiology results, to return to the emergency department if symptoms worsen or persist or if there are any questions or concerns that arise at home. Response to treatment: the patient's symptoms have markedly improved after treatment, and as a result, I will discharge patient. 08/20 19:28 Order name: Strep; Complete Time: 22:32 08/20 19:28 Order name: Basic Metabolic Panel; Complete Time: 20:25 08/20 20:25 Interpretation: Normal except: K 3.4; CL 109; GLUC 111. 08/20 19:28 Order name: CBC with Diff; Complete Time: 20:25 08/20 20:25 Interpretation: Normal except: RBC 4.87; MCH 26.7. 08/20 20:53 Order name: SARS-COV-2 Antigen Rapid; Complete Time: 21:19 [facility] 08/20 21:19 Interpretation: Reviewed. 08/20 20:53 Order name: Influenza Screen (A ; Complete Time: 22:32 [facility] 08/20 21:35 Order name: Throat Culture [facility] 08/20 19:28 Order name: XRAY Chest (1 view); Complete Time: 21:18 08/20 21:18 Interpretation: Report review. 08/20 19:28 Order name: CT Head Brain wo Cont; Complete Time: 20:25 08/20 20:25 Interpretation: Report reviewed. 08/20 19:28 Order name: EKG; Complete Time: 19:29 08/20 19:28 Order name: Cardiac monitoring 08/20 19:28 Order name: EKG - Nurse/Tech; Complete Time: 20:51 08/20 19:28 Order name: IV Saline Lock; Complete Time: 19:35 08/20 19:28 Order name: Labs collected and sent; Complete Time: 20:51 08/20 19:28 Order name: O2 Per Protocol; Complete Time: 20:51 cp 08/20 19:28 Order name: O2 Sat Monitoring; Complete Time: 20:51 cp EC:40 Rate is 87 beats/min. Rhythm is regular. VT interval is normal. QRS interval is normal. cp QT interval is normal. T waves are Inverted in lead aVR. Interpreted by me. Reviewed by me. Administered Medications: 19:47 Drug: diphenhydrAMINE IVP 25 mg Route: IVP; Site: left antecubital; sg5 20:40 Follow up: Response: No adverse reaction; Marked relief of symptoms pf1 19:47 Drug: Ondansetron IVP 4 mg Route: IVP; Site: left antecubital; sg5 20:40 Follow up: Response: No adverse reaction; Marked relief of symptoms pf1 19:48 Drug: NS 0.9% IV 1000 ml Route: IV; Rate: 1 bolus; Site: left antecubital; sg5 21:00 Follow up: Response: No adverse reaction; Marked relief of symptoms; IV Status: pf1 Completed infusion; IV Intake: 1000ml 19:48 Drug: metoCLOPramide IVP 10 mg Route: IVP; Site: left antecubital; sg5 20:40 Follow up: Response: No adverse reaction; Marked relief of symptoms pf1 22:50 Drug: Potassium PO Effervescent Tablet 25 mEq Route: PO; cg 22:58 Follow up: Response: No adverse reaction; Marked relief of symptoms pf1 Disposition: 08/21 10:01 Co-signature as Attending Physician, Venkat Boucher MD I reviewed the patient's care rn provided by the Advanced Practice Provider and agree with the diagnosis and treatment plan. Disposition Summary: 08/20/22 22:36 Discharge Ordered Location: Home cp Problem: new cp Symptoms: have improved cp Condition: Stable cp Diagnosis - Headache cp - Acute pharyngitis, unspecified cp - Chest pain, unspecified cp Followup: cp - With: Private Physician - When: 1 - 2 days - Reason: Worsening of condition Discharge Instructions: - Discharge Summary Sheet cp - Nonspecific Chest Pain, Adult cp - Migraine Headache cp - Pharyngitis cp - Sore Throat cp Forms: - Medication Reconciliation Form cp - Thank You Letter cp - Antibiotic Education cp - Prescription Opioid Use cp - [email or web address] cp Prescriptions: - Ibuprofen 800 mg Oral Tablet - take 1 tablet by ORAL route every 8 hours As needed take with food; 30 tablet; cp Refills: 0, Product Selection Permitted - Pepcid 20 mg Oral Tablet - take 1 tablet by ORAL route every 12 hours for 10 days; 20 tablet; Refills: 0, cp Product Selection Permitted Signatures: Dispatcher [facility] Venkat Hammond MD MD rn Page, Corey, PA PA cp Garcia, Cindy RN RN Odilia Taylor RN RN lg3 Patience Norton RN RN sg5 Becky Goodrich RN pf1
--- NOTE | 2022-08-20 22:37 | ER ---
Nurse's Notes [facility] Name: Soledad Garcia Age: 27 yrs Sex: Female : 1995 Arrival Date: 08/20/2022 Time: 19:05 Bed 10 Private MD: Diagnosis: Headache;Acute pharyngitis, unspecified;Chest pain, unspecified Presentation: 08/20 19:11 Chief complaint: Patient states: endoscopy this morning. headache prior to procedure lg3 but dissipated. went home after procedure and fell asleep. woke up a few hours later with throat pain, migraine, body aches and chest pain. took Tylenol 3 and oral lidocaine with no relief. Coronavirus screen: Client denies travel out of the [place] in the last 14 days. At this time, the client does not indicate any symptoms associated with coronavirus-19. Ebola Screen: No symptoms or risks identified at this time. Initial Sepsis Screen: Does the patient meet any 2 criteria? No. Patient's initial sepsis screen is negative. Does the patient have a suspected source of infection? No. Patient's initial sepsis screen is negative. Risk Assessment: Do you want to hurt yourself or someone else? Patient reports no desire to harm self or others. Onset of symptoms was August 20, 2022. 19:11 Method Of Arrival: Ambulatory lg3 19:11 Acuity: LIBERTAD 3 lg3 Triage Assessment: 19:14 General: Appears in no apparent distress. uncomfortable, Behavior is calm, cooperative. lg3 Pain: Complains of pain in head and chest. EENT: No deficits noted. Reports difficulty swallowing. Neuro: No deficits noted. Gomes Agitation-Sedation Scale (RASS): 0 - Alert and Calm Level of Consciousness is awake, alert, obeys commands, Oriented to person, place, time, situation. Cardiovascular: No deficits noted. Reports chest pain, Capillary refill < 3 seconds Clubbing of nail beds is absent JVD is absent Patient's skin is warm and dry. Respiratory: No deficits noted. Airway is patent Respiratory effort is even, unlabored, Respiratory pattern is regular, symmetrical. GI: No deficits noted. Abdomen is round non-distended, obese, Reports nausea. : No deficits noted. No signs and/or symptoms were reported regarding the genitourinary system. Derm: No deficits noted. No signs and/or symptoms reported regarding the dermatologic system. Skin is intact, is healthy with good turgor, Skin is dry, Skin is normal, Skin temperature is warm. Musculoskeletal: No deficits noted. No signs and/or symptoms reported regarding the musculoskeletal system. Circulation, motion, and sensation intact. Range of motion: intact in all extremities. 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 - Social history:: Smoking status: Reported history of juuling and/or vaping. Patient uses alcohol, only on a social basis. Screenin:25 [facility] ED Fall Risk Assessment (Adult) History of falling in the last 3 months, sg5 including since admission No falls in past 3 months (0 pts). Abuse screen: Denies threats or abuse. Nutritional screening: No deficits noted. Tuberculosis screening: No symptoms or risk factors identified. Assessment: 19:25 General: Appears uncomfortable, Behavior is calm, cooperative, appropriate for age. sg5 Pain: Complains of pain in chest, head and throat Pain currently is 7 out of 10 on a pain scale. Neuro: Level of Consciousness is awake, alert, obeys commands, Oriented to person, place, time, situation, Appropriate for age. Cardiovascular: Capillary refill < 3 seconds Patient's skin is warm and dry. Respiratory: Airway is patent Trachea midline Respiratory effort is even, unlabored, Breath sounds are clear bilaterally. GI: Abdomen is round non-distended, Reports nausea. : No signs and/or symptoms were reported regarding the genitourinary system. EENT: Throat is clear. Derm: No signs and/or symptoms reported regarding the dermatologic system. Musculoskeletal: No signs and/or symptoms reported regarding the musculoskeletal system. Vital Signs: 19:11 BP 139 / 99; Pulse 95; Resp 18 S; Temp 98.6(O); Pulse Ox 100% on R/A; Weight 99.79 kg lg3 (R); Height 5 ft. 7 in. (R); Pain 7/10; 20:36 BP 139 / 94; Pulse 90; Resp 16; Temp 98.4(O); Pulse Ox 100% on R/A; sg5 19:11 Body Mass Index 34.46 (99.79 kg, 170.18 cm) lg3 19:11 Pain Scale: Adult lg3 ED Course: 19:08 Patient arrived in ED. ja2 19:14 Triage completed. lg3 19:14 Arm band placed on right wrist. lg3 19:20 Oswald Plaza PA is PHCP. cp 19:20 Venkat Boucher MD is Attending Physician. cp 19:23 Patience Norton, ELISABET is Primary Nurse. sg5 19:25 Patient has correct armband on for positive identification. Call light in reach. Adult sg5 w/ patient. Valuables Left with patient. 19:35 Inserted saline lock: 20 gauge in left antecubital area, using aseptic technique. Blood sg5 collected. 19:55 CT Head Brain wo Cont In Process Unspecified. EDMS 20:48 XRAY Chest (1 view) In Process Unspecified. EDMS 20:51 Influenza Screen (a \T\ B) Sent. lg3 20:51 SARS RAPID Sent. lg3 23:01 No provider procedures requiring assistance completed. IV discontinued, intact, pf1 bleeding controlled, No redness/swelling at site. Pressure dressing applied. Administered Medications: 19:47 Drug: diphenhydrAMINE IVP 25 mg Route: IVP; Site: left antecubital; sg5 20:40 Follow up: Response: No adverse reaction; Marked relief of symptoms pf1 19:47 Drug: Ondansetron IVP 4 mg Route: IVP; Site: left antecubital; sg5 20:40 Follow up: Response: No adverse reaction; Marked relief of symptoms pf1 19:48 Drug: NS 0.9% IV 1000 ml Route: IV; Rate: 1 bolus; Site: left antecubital; sg5 21:00 Follow up: Response: No adverse reaction; Marked relief of symptoms; IV Status: pf1 Completed infusion; IV Intake: 1000ml 19:48 Drug: metoCLOPramide IVP 10 mg Route: IVP; Site: left antecubital; sg5 20:40 Follow up: Response: No adverse reaction; Marked relief of symptoms pf1 22:50 Drug: Potassium PO Effervescent Tablet 25 mEq Route: PO; cg 22:58 Follow up: Response: No adverse reaction; Marked relief of symptoms pf1 Medication: 23:02 VIS not applicable for this client. pf1 Intake: 21:00 IV: 1000ml; Total: 1000ml. pf1 Outcome: 22:36 Discharge ordered by MD. cp 23:01 Discharged to home ambulatory. pf1 23:01 Condition: improved 23:01 Discharge instructions given to patient, Instructed on discharge instructions, follow up and referral plans. Demonstrated understanding of instructions, follow-up care, medications, Prescriptions given X 2. 23:02 Patient left the ED. pf1 Signatures: Dispatcher [employer] EDMS Oswald Plaza PA PA cp Garcia, Cindy, RN RN Odilia Taylor RN RN lg3 Mariana Mehta Pamala, RN RN pf1 Patience Norton RN RN sg5
[2022-08-20] MEDS ORDERED: POTASSIUM 25 MEQ EFFERV TAB ONE (22:56)
[2022-08-20 23:48] VITALS: O2SAT 100
[2022-08-20 23:49] VITALS: BP 139/94; TEMP 98.4
--- NOTE | 2022-08-22 16:21 | EKG ---
Test Date: 2022-08-20 Test Time: 20:35:12 Visual Training Aide: TIM MEASUREMENT RESULTS: Intervals: Rate: 87 CA: 144 QRSD: 100 QT: 384 QTc: 462 [place]: P: 58 CA: 144 QRS: 76 T: 48 INTERPRETIVE STATEMENTS: Normal sinus rhythm Normal ECG No previous ECG available for comparison Electronically Signed On 08-22-22 16:18:11 CDT by Leodan Hodge
== END 2022-08-20 23:02 | disposition home or self-care (01) ==
LOC: ER 19:05
DX: R51.9 Headache, unspecified (principal); J02.9 Acute pharyngitis, unspecified; R07.9 Chest pain, unspecified; Z20.822 Contact with and (suspected) exposure to COVID-19; Z88.5 Allergy status to narcotic agent; Z91.048 Other nonmedicinal substance allergy status
CPT/HCPCS: 96361; 93005; 87070; 85025; 80048; 36415; 87081; 87804 ×2; 70450; 71045; 96375; 96374; 99284; 87811; J2765; J1200; J2405; J7030

== ENCOUNTER → 2023-02-03 | Emergency (ER) | payer BC ==
[~2023-02-03] MED LIST: PANTOPRAZOLE 40 MG INJ ONE
--- OUTSIDE RECORDS SUMMARY | 2023-02-03 18:08 | XMS REPORT | Continuity of Care Document ---
Author Name Unknown Address [address] 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 Name Role Phone Davion Jerez Primary Care Physician BARBER Attending Clinician Unavailable MD JUMANA Attending Clinician Unavailab ALEX Noble Attending Clinician Unavailable ALEX PERKINS Attending Clinician Unavailable NICK HYMAN Attending Clinician Unavailable Doctor Unassigned, [place] Attending Clinician U navailable [email or web address]_S Attending Clinician Unavailable BARBIE RAMOS Attending Clinician Unavailable BARBER Admitting Clinician Unavailable [email or web address]_S Admitting Clinician Unavailable Payers Payer Name Policy Type Policy Number Effective Date Expirati on Date Source [place] [id number] 2021 00:00:00 BCBS 2 [id number] 2021 00:00:00 BLUE ESSENTIALS O [id number] 00:00:00 Problems Condition Name Condition Details Condition Category Status Onset Date Resolution Date Last Treatment Date Treating Clinician Comments Source Hyperinsul inism Hyperinsul inism Problem Active 07-30 00:00: 00 [facility] Hyperinsul inar obesity Hyperinsul inar Obesity Problem Active 07-30 00:00: 00 [facility] Menstrual migraine Menstrual Migraine Problem Active 04-21 00:00: 00 [facility] Hiatal hernia with gastroesop hageal reflux Hiatal Hernia with Gastroesop hageal Reflux Problem Active 307 00:00: 00 [facility] Vitamin D deficiency Vitamin D Deficiency Problem Active 2-06 00:00: 00 [facility] Mixed hyperlipid emia Mixed Hyperlipid emia Problem Active 2 00:00: 00 [facility] Body mass index 30+ - obesity Body Mass Index 30+ - Obesity Problem Active 206 00:00: 00 [facility] Acanthosis nigricans Acanthosis Nigricans Problem Active 2 00:00: 00 [facility] Prediabete s Prediabete s Problem Active 2 00:00: 00 [facility] Insulin resistance syndrome Insulin resistance syndrome Disease Active 5-16 00:00: 00 Cassandra Seeverettold - Externa l Acanthosis nigricans Acanthosis nigricans Disease Active 408 00:00: 00 Cassandra Seybold - Externa l History of SARS-CoV-2 History of SARS-CoV-2 Problem Active 505 00:00: 00 [facility] Pneumonia caused by SARS-CoV-2 Pneumonia Caused by SARS-CoV-2 Problem Active 05 00:00: 00 [facility] Weight gain Weight gain Disease Active 2019-02 1-04 00:00: 00 Cassandra Seybold - Externa l Hyperlipid emia Hyperlipid emia Disease Active 8-24 00:00: 00 Cassandra Seybold - Externa l Body mass index 30.0-30.9, adult Body mass index 30.0-30.9, adult Disease Active 7-09 00:00: 00 Cassandra Seybold - Externa l Bipolar affective disorder, most recent episode mixed Bipolar affective disorder, most recent episode mixed Disease Active 6-23 00:00: 00 Cassandra Seybold - Externa l Allergies, Adverse Reactions, Alerts Allergy Name Allergy Type Status Severity Reaction(s) Onset Date Inactive Date Treating Clinician Comments Source NO KNOWN ALLERGIE S Drug Class Active [facility] IODINATE D CONTRAST MEDIA Allergy to substanc e Active Hives [facility] STADOL Allergy to substanc e Active Hallucinatio ns [facility] Social History Social Habit Start Date Stop Date Quantity Comments Source Sexual orientation Roya ya Roman - External History of tobacco use Cigarette Smoker Cassandra gaines - External Gender identity Elaina martha Owens - External Cigarettes smoked current (pack per day) - Reported 2022-07-31 00:00:00 2022-07-31 00:00:00 Cassandra Owens - External Cigarette pack-years 2022-07-31 00:00:00 2022-07-31 00:00:00 Cassandra Owens - External History of Social function 2022-07-31 00:00:00 2022-07-31 00:00:00 Cassandra Owens - External Sex Assigned At 1995 00:00:00 1995 00:00:00 Cassandra Owens - External Smoking Status Start Date Stop Date Source Never Smoker [facility] Tobacco smoking consumption unknown [facility] Occasional tobacco smoker 2022-07-31 00:00:00 Cassandra Owens - External Medications Ordered Medication Name Filled Medication Name Start Date Stop Date Current Medication? Ordering Clinician Indication Dosage Frequency Signature (SIG) Comments Components Source Rizatriptan Benzoate 10 MG oral Tablet 07-31 15:28: 04 Yes 5mg Take 0.5 tablets (5 mg total) by mouth once as needed (May repeat in 2 hours if unresolved . Do not exceed 30 mg in 24 hours.) Cassandra bedoya Dexamethaso ne 1 MG oral Tablet 07-31 00:00: 00 Yes [id number] Take 1 mg dexamethas one at 11 PM and get blood work the following morning btw 8-9AM. Cassandra bedoya ondansetron 4 mg disintegrat ing tablet DISSOLVE 1 TO 2 TABLETS ON THE TONGUE EVERY 8 HOURS ondansetron 4 mg disintegrat ing tablet DISSOLVE 1 TO 2 TABLETS ON THE TONGUE EVERY 8 HOURS 6-15 00:00: 00 No ondansetro n 4 mg disintegra ting tablet DISSOLVE 1 TO 2 TABLETS ON THE TONGUE EVERY 8 HOURS [facility] Metformin HCl ER 500 MG oral TABLET SR 24 HR 7-07 00:00: 00 16 00:00 :00 No 500mg Take 1 tablet (500 mg total) by mouth daily with dinner [facility] Externa elke rizatriptan 10 mg disintegrat ing tablet DISSOLVE ONE TABLET UNDER THE TONGUE WITH OCCURENCE OF MIGRAINE rizatriptan 10 mg disintegrat ing tablet DISSOLVE ONE TABLET UNDER THE TONGUE WITH OCCURENCE OF MIGRAINE No rizatripta n 10 mg disintegra ting tablet DISSOLVE ONE TABLET UNDER THE TONGUE WITH OCCURENCE OF MIGRAINE [facility] valacyclovi r 1 gram tablet TAKE 1 TABLET BY MOUTH EVERY MORNING AND 1 TABLET EVERY EVENING FOR 10 DAYS valacyclovi r 1 gram tablet TAKE 1 TABLET BY MOUTH EVERY MORNING AND 1 TABLET EVERY EVENING FOR 10 DAYS No valacyclov ir 1 gram tablet TAKE 1 TABLET BY MOUTH EVERY MORNING AND 1 TABLET EVERY EVENING FOR 10 DAYS [facility] penicillin V potassium 500 mg tablet Take 1 tablet every 8 hours by oral route as directed for 7 days. penicillin V potassium 500 mg tablet Take 1 tablet every 8 hours by oral route as directed for 7 days. No 1 Q8H penicillin V potassium 500 mg tablet Take 1 tablet every 8 hours by oral route as directed for 7 days. [facility] promethazin e-DM 6.25 mg-15 mg/5 mL oral syrup Take 5 mL every 4 hours by oral route as needed for 10 days. promethazin e-DM 6.25 mg-15 mg/5 mL oral syrup Take 5 mL every 4 hours by oral route as needed for 10 days. No 5mL Q4H promethazi ne-DM 6.25 mg-15 mg/5 mL oral syrup Take 5 mL every 4 hours by oral route as needed for 10 days. [facility] rabeprazole 20 mg tablet,alfonso yed release rabeprazole 20 mg tablet,alfonso yed release No rabeprazol e 20 mg tablet,del ayed release [facility] rizatriptan 10 mg disintegrat ing tablet DISSOLVE ONE TABLET UNDER THE TONGUE WITH OCCURENCE OF MIGRAINE rizatriptan 10 mg disintegrat ing tablet DISSOLVE ONE TABLET UNDER THE TONGUE WITH OCCURENCE OF MIGRAINE No rizatripta n 10 mg disintegra ting tablet DISSOLVE ONE TABLET UNDER THE TONGUE WITH OCCURENCE OF MIGRAINE [facility] sucralfate 1 gram tablet sucralfate 1 gram tablet No sucralfate 1 gram tablet [facility] penicillin V potassium 500 mg tablet Take 1 tablet every 8 hours by oral route as directed for 7 days. penicillin V potassium 500 mg tablet Take 1 tablet every 8 hours by oral route as directed for 7 days. No 1 Q8H penicillin V potassium 500 mg tablet Take 1 tablet every 8 hours by oral route as directed for 7 days. [facility] promethazin e-DM 6.25 mg-15 mg/5 mL oral syrup Take 5 mL every 4 hours by oral route as needed for 10 days. promethazin e-DM 6.25 mg-15 mg/5 mL oral syrup Take 5 mL every 4 hours by oral route as needed for 10 days. No 5mL Q4H promethazi ne-DM 6.25 mg-15 mg/5 mL oral syrup Take 5 mL every 4 hours by oral route as needed for 10 days. [facility] rabeprazole 20 mg tablet,alfonso yed release rabeprazole 20 mg tablet,alfonso yed release No rabeprazol e 20 mg tablet,del ayed release [facility] rizatriptan 10 mg disintegrat ing tablet DISSOLVE ONE TABLET UNDER THE TONGUE WITH OCCURENCE OF MIGRAINE rizatriptan 10 mg disintegrat ing tablet DISSOLVE ONE TABLET UNDER THE TONGUE WITH OCCURENCE OF MIGRAINE No rizatripta n 10 mg disintegra ting tablet DISSOLVE ONE TABLET UNDER THE TONGUE WITH OCCURENCE OF MIGRAINE [facility] sucralfate 1 gram tablet sucralfate 1 gram tablet No sucralfate 1 gram tablet [facility] penicillin V potassium 500 mg tablet Take 1 tablet every 8 hours by oral route as directed for 7 days. penicillin V potassium 500 mg tablet Take 1 tablet every 8 hours by oral route as directed for 7 days. No penicillin V potassium 500 mg tablet Take 1 tablet every 8 hours by oral route as directed for 7 days. [facility] promethazin e-DM 6.25 mg-15 mg/5 mL oral syrup Take 5 mL every 4 hours by oral route as needed for 10 days. promethazin e-DM 6.25 mg-15 mg/5 mL oral syrup Take 5 mL every 4 hours by oral route as needed for 10 days. No promethazi ne-DM 6.25 mg-15 mg/5 mL oral syrup Take 5 mL every 4 hours by oral route as needed for 10 days. [facility] rabeprazole 20 mg tablet,alfonso yed release TAKE 1 TABLET BY MOUTH EVERY DAY rabeprazole 20 mg tablet,alfonso yed release TAKE 1 TABLET BY MOUTH EVERY DAY No rabeprazol e 20 mg tablet,del ayed release TAKE 1 TABLET BY MOUTH EVERY DAY [facility] rizatriptan 10 mg disintegrat ing tablet DISSOLVE ONE TABLET UNDER THE TONGUE WITH OCCURENCE OF MIGRAINE rizatriptan 10 mg disintegrat ing tablet DISSOLVE ONE TABLET UNDER THE TONGUE WITH OCCURENCE OF MIGRAINE No rizatripta n 10 mg disintegra ting tablet DISSOLVE ONE TABLET UNDER THE TONGUE WITH OCCURENCE OF MIGRAINE [facility] sucralfate 1 gram tablet TAKE 1 TABLET BY MOUTH THREE TIMES DAILY ON AN EMPTY STOMACH FOR 14 DAYS sucralfate 1 gram tablet TAKE 1 TABLET BY MOUTH THREE TIMES DAILY ON AN EMPTY STOMACH FOR 14 DAYS No sucralfate 1 gram tablet TAKE 1 TABLET BY MOUTH THREE TIMES DAILY ON AN EMPTY STOMACH FOR 14 DAYS [facility] dicyclomine 20 mg tablet Take 1 tablet 3 times a day by oral route. dicyclomine 20 mg tablet Take 1 tablet 3 times a day by oral route. No 1 TID dicyclomin e 20 mg tablet Take 1 tablet 3 times a day by oral route. [facility] pantoprazol e 40 mg tablet,alfonso yed release Take 1 tablet every day by oral route. pantoprazol e 40 mg tablet,alfonso yed release Take 1 tablet every day by oral route. No 1 Q1D pantoprazo le 40 mg tablet,del ayed release Take 1 tablet every day by oral route. [facility] dicyclomine 20 mg tablet TAKE 1 TABLET BY MOUTH THREE TIMES DAILY dicyclomine 20 mg tablet TAKE 1 TABLET BY MOUTH THREE TIMES DAILY No dicyclomin e 20 mg tablet TAKE 1 TABLET BY MOUTH THREE TIMES DAILY [facility] Maxalt-ICE CREAM SERVER 10 mg disintegrat ing tablet 1 tab sublingual with occurence of migraine. Maxalt-ICE CREAM SERVER 10 mg disintegrat ing tablet 1 tab sublingual with occurence of migraine. No Maxalt-ICE CREAM SERVER 10 mg disintegra ting tablet 1 tab sublingual with occurence of migraine. [facility] pantoprazol e 40 mg tablet,alfonso yed release TAKE 1 TABLET BY MOUTH EVERY DAY pantoprazol e 40 mg tablet,alfonso yed release TAKE 1 TABLET BY MOUTH EVERY DAY No pantoprazo le 40 mg tablet,del ayed release TAKE 1 TABLET BY MOUTH EVERY DAY [facility] Topamax 50 mg tablet 1 tablet when migraine occurs Topamax 50 mg tablet 1 tablet when migraine occurs No Topamax 50 mg tablet 1 tablet when migraine occurs [facility] Actos 15 mg tablet Take 1 tablet every day by oral route. Actos 15 mg tablet Take 1 tablet every day by oral route. No 1 Q1D Actos 15 mg tablet Take 1 tablet every day by oral route. [facility] dicyclomine 20 mg tablet TAKE 1 TABLET BY MOUTH THREE TIMES DAILY dicyclomine 20 mg tablet TAKE 1 TABLET BY MOUTH THREE TIMES DAILY No dicyclomin e 20 mg tablet TAKE 1 TABLET BY MOUTH THREE TIMES DAILY [facility] esomeprazol e magnesium 40 mg capsule,del ayed release esomeprazol e magnesium 40 mg capsule,del ayed release No esomeprazo le magnesium 40 mg capsule,de layed release [facility] famotidine 20 mg tablet famotidine 20 mg tablet No famotidine 20 mg tablet [facility] NuLev 0.125 mg disintegrat ing tablet NuLev 0.125 mg disintegrat ing tablet No NuLev 0.125 mg disintegra ting tablet [facility] pantoprazol e 40 mg tablet,alfonso yed release TAKE 1 TABLET BY MOUTH EVERY DAY pantoprazol e 40 mg tablet,alfonso yed release TAKE 1 TABLET BY MOUTH EVERY DAY No pantoprazo le 40 mg tablet,del ayed release TAKE 1 TABLET BY MOUTH EVERY DAY [facility] penicillin V potassium 500 mg tablet Take 1 tablet every 8 hours by oral route for 7 days. penicillin V potassium 500 mg tablet Take 1 tablet every 8 hours by oral route for 7 days. No 1 Q8H penicillin V potassium 500 mg tablet Take 1 tablet every 8 hours by oral route for 7 days. [facility] rizatriptan 10 mg disintegrat ing tablet DISSOLVE ONE TABLET UNDER THE TONGUE WITH OCCURENCE OF MIGRAINE rizatriptan 10 mg disintegrat ing tablet DISSOLVE ONE TABLET UNDER THE TONGUE WITH OCCURENCE OF MIGRAINE No rizatripta n 10 mg disintegra ting tablet DISSOLVE ONE TABLET UNDER THE TONGUE WITH OCCURENCE OF MIGRAINE [facility] Topamax 50 mg tablet 1 tablet when migraine occurs Topamax 50 mg tablet 1 tablet when migraine occurs No Topamax 50 mg tablet 1 tablet when migraine occurs [facility] valacyclovi r 1 gram tablet TAKE 1 TABLET BY MOUTH EVERY MORNING AND 1 TABLET EVERY EVENING FOR 10 DAYS valacyclovi r 1 gram tablet TAKE 1 TABLET BY MOUTH EVERY MORNING AND 1 TABLET EVERY EVENING FOR 10 DAYS No valacyclov ir 1 gram tablet TAKE 1 TABLET BY MOUTH EVERY MORNING AND 1 TABLET EVERY EVENING FOR 10 DAYS [facility] Vital Signs Vital Name Observation Time Observation Value Comments S ource BP Systolic 2022-09-24 00:00:00 124 mm[Hg] [facility] BMI (Body Mass Index) 2022-09-24 00:00:00 32.7 kg/m2 [facility] Height 2022-09-24 00:00:00 67 [in_i] [facility] BP Diastolic 2022-09-24 00:00:00 74 [facility]Hg[facility] Body Weight 2022-09-24 00:00:00 3344 [oz_av] [facility] Body height 2022-07-31 20:06:00 170.2 cm Elaina ey Seybold - External Body weight 2022-07-31 20:06:00 97.977 kg Elaina ey Seybold - External BMI 2022-07-31 20:06:00 33.83 kg/m2 Elaina ey Seybold - External BP Diastolic 2022-07-30 00:00:00 74 mm[Hg] [facility] Height 2022-07-30 00:00:00 67 [in_i] [facility] BMI (Body Mass Index) 2022-07-30 00:00:00 33.9 kg/m2 [facility] BP Systolic 2022-07-30 00:00:00 124 mm[Hg] [facility] Body Weight 2022-07-30 00:00:00 3464 [oz_av] [facility] BP Diastolic 2022-05-19 00:00:00 74 mm[Hg] [facility] Height 2022-05-19 00:00:00 67 [in_i] [facility] BMI (Body Mass Index) 2022-05-19 00:00:00 34.6 kg/m2 [facility] BP Systolic 2022-05-19 00:00:00 128 mm[Hg] [facility] Body Weight 2022-05-19 00:00:00 3536 [oz_av] [facility] BP Diastolic 2022-04-21 00:00:00 70 mm[Hg] [facility] Height 2022-04-21 00:00:00 67 [in_i] [facility] BMI (Body Mass Index) 2022-04-21 00:00:00 34 kg/m2 [facility] BP Systolic 2022-04-21 00:00:00 124 mm[Hg] [facility] Body Weight 2022-04-21 00:00:00 3472 [oz_av] [facility] BP Diastolic 2022-03-24 00:00:00 78 mm[Hg] [facility] Height 2022-03-24 00:00:00 67 [in_i] [facility] BMI (Body Mass Index) 2022-03-24 00:00:00 33.8 kg/m2 [facility] BP Systolic 2022-03-24 00:00:00 122 mm[Hg] [facility] Body Weight 2022-03-24 00:00:00 3456 [oz_av] [facility] Procedures Procedure Date / Time Performed Performing Clinicia n Source REFERRAL- REQUEST/RESPONSE 2022-06-15 05:01:00 Doctor Unassigned, [place] [facility] MRI, brain, w/wo contrast 2022-04-21 00:00:00 [facility] ASSIGNMENT OF BENEFITS 2021-04-19 21:06:23 Docto r Unassigned, [place] [facility] Sinus Surgery [facility] Plan of Care Planned Activity Planned Date Details Comments Source Future Scheduled Test Improved o verall well being. [code = Improved overall well being.] [facility] Instructions [facility] Encounters Start Date/Time End Date/Time Encounter Type Admission Type Attending Clinicians Care Facility Care Department Encounter ID Source 2022-12-30 00:00:00 2022-12-30 00:00:00 Outpatient ERICKSON_R [facility] [id number] [facility] 2022-11-25 00:00:00 2022-11-25 00:00:00 Outpatient ERICKSON_R [facility] [id number] [facility] 2022-10-21 00:00:00 2022-10-21 00:00:00 Outpatient ERICKSON_R [facility] [id number] [facility] 2022-10-09 00:00:00 2022-10-09 00:00:00 Outpatient MD CASSANDRA MALHOTRA [id number] Cassandra Owens 2022-09-24 00:00:00 2022-09-24 00:00:00 Outpatient [facility]ICKSON[facility]R [facility] [id number] 2022-09-24 00:00:00 2022-09-24 00:00:00 GEM BorjasC: [address], [place] [address] , Ph. [facility], DR. JEREZ [id number] [facility] 2022-09-16 00:00:00 2022-09-16 00:00:00 Outpatient ERICKSON_R [facility] [id number] [facility] 2022-08-12 00:00:00 2022-08-12 00:00:00 Outpatient ERICKSON_R [facility] [id number] [facility] 2022-07-31 15:15:00 2022-07-31 15:15:00 Outpatient NICK HYMAN [id number] Cassandra Owens 2022-07-30 00:00:00 2022-07-30 00:00:00 Davion Jerez, : [address], [place] [address] , Ph. [facility], DR. JEREZ [id number] [facility] 2022-07-13 00:00:00 2022-07-13 00:00:00 Outpatient ERICKSON_R [facility] [id number] [facility] 2022-07-03 00:00:00 2022-07-03 00:00:00 Outpatient ERICKSON_R [facility] [id number] [facility] 2022-06-15 00:00:00 2022-06-15 00:00:00 Orders Only Doctor Unassigned, [place] [facility] [id number] [facility] 2022-05-30 00:00:00 2022-05-30 00:00:00 Outpatient ERICKSON_R [facility] [id number] [facility] 2022-05-28 00:00:00 2022-05-28 00:00:00 Outpatient ERICKSON_R [facility] [id number] [facility] 2022-05-19 00:00:00 2022-05-19 00:00:00 Outpatient ERICKSON_R [facility] [id number] [facility] 2022-05-19 00:00:00 2022-05-19 00:00:00 Davion Jerez, DO: [address] [place] [address] , Ph. [phone] [facility], DR[address] JEREZ [id number] [facility] 2022-05-08 00:00:00 2022-05-08 00:00:00 Outpatient ERICKSON_R [facility] [id number] [facility] 2022-04-22 00:00:00 2022-04-22 00:00:00 Outpatient GC_TNC_Lovi tt_S PRIV PRIV [id number] [facility] 2022-04-21 00:00:00 2022-04-21 00:00:00 Outpatient ERICKSON_R [facility] [id number] [facility] 2022-04-21 00:00:00 2022-04-21 00:00:00 Davion Jerez, DO: [address] [place] [address] , Ph. [phone] [facility], DR. JEREZ [id number] [facility] 2022-03-30 00:00:00 2022-03-30 00:00:00 Outpatient ERICKSON_R [facility] [id number] [facility] 2022-03-24 00:00:00 2022-03-24 00:00:00 Davion Jerez, DO: [address] [place] [address] , Ph. [facility], DR. JEREZ [id number] [facility] 2022-03-23 00:00:00 2022-03-23 00:00:00 Outpatient ERICKSON_R [facility] [id number] [facility] 2022-03-23 00:00:00 2022-03-23 00:00:00 Outpatient ERICKSON_R [facility] [id number] [facility] 2022-03-23 00:00:00 2022-03-23 00:00:00 Davion Jerez, DO: [address] [place] [address] , Ph. [facility], DR. JEREZ [id number] [facility] 2022-03-16 00:00:00 2022-03-16 00:00:00 Outpatient ERICKSON_R [facility] [id number] [facility] 2021-12-01 13:57:13 2021-12-01 13:57:13 Outpatient LILIANA FORD [id number] Julian Rivero 2021-04-19 15:20:00 2021-04-19 15:20:00 Outpatient BARBIE MAY [facility] [id number] [facility] 2021-04-19 00:00:00 2021-04-19 00:00:00 Orders Only Doctor Unassigned, [place] [facility] [id number] [facility] Results Test Description Test Time Test Comments Results Result Co mments Source HIV 1/2 4TH GEN, RFLX [id number] 03:29:12* Test Item Value Reference Range Interpretation Comme [facility] HIV 1/2 4TH GEN, RFLX CONF ( test code = 3514) NON-REACTIVE NON-REACTIVE HEPATITIS PANEL, [id number] 03:29:12* Test Item Value Reference Range Interpretation Comme [facility] HEPATITIS A IgM (test code = 68423) NON-REACTIVE NON-REACTIVE HEPATITIS B CORE IgM (test code = 4644) NON-REACTIVE NON-REACTIVE HEPATITIS B SURF AG (test code = 2739) NON-REACTIVE NON-REACTIVE HEPATITIS C ANTIBODY (test code = 4675) NON-REACTIVE NON-REACTIVE INTERPRETATION HEPATITIS A: (test code = 2552) (NOTE) Hepatitis A sero logy shows no evidence of acute hepatitis A. INTERPRETATION HEPATITIS B: (test code = 32712) (NOTE) Hepatitis B sero logy shows no evidence of acute hepatitis B andno indication of exposure to hepatitis B virus in the previous eduard eight months. INTERPRETATION HEPATITIS C: (test code = 84110) (NOTE) Hepatitis C sero logy shows no evidence of exposure to hepatitisC virus at this time. It can take up to 12 months after exposure tothe hepatitis C virus for antibodies to become detectable in the blood in certain patients. UNLESS OTHERWISE INDICATED, ALL TEST[facility]FOR[facility] [address] [place] [address] STONEWORK TRACER: BETTY BETHEA M.D. CLIA NUMBER [id number] [place] [id number] MUMPS IgG AND [id number] 23:37:36* Test Item Value Reference Range Interpretation Comme [facility] MUMPS VIRUS IgG (test code = 75272) 49.8 AU/mL INTERPRETIVE INF ORMATION: Mumps Ab, IgG by RODRIGO 8.9 AU/mL or less .... Negative - No significant level of detectable IgG mumps virus antibody 9.0-10.9 AU/mL ....... Equivocal - Repeat testing in 10-14 days may be helpful 11.0 AU/mL or greater: Positive - IgG antibody to mumps virus detected, which may indicate a current or past exposure/ immunization to mumps virus. The best evidence for current infection is a significant change on two appropriately timed specimens, where both tests are done in the same laboratory at the same time. TESTING PERFORMED AT [facility], [facility] [address], [place] [address] [place]. [id number] CLIA NO. [id number] MUMPS VIRUS IgM (test code = 4587) 0.52 IV See_Comment INTERPRETIVE INFORMATION: Mumps Virus Antibody, IgM 0.79 IV or less: Negative - No significant level of detectable IgM antibody to mumps virus. 0.80 - 1.20 IV: Equivocal - Borderline levels of IgM antibody to mumps virus. Repeat testing in 10-14 days may be helpful. 1.21 IV or greater: Positive - Presence of IgM antibody to mumps virus detected, which may indicate a current or recent infection. However, low levels of IgM antibody may occasionally persist for more than 12 months post-infection or immunization. TESTING PERFORMED AT [facility], [facility] [address], [place] [address] [place]. [id number] CLIA NO. [id number] [Automated message] The system which generated this result transmitted reference range: <=0.79. The reference range was not used to interpret this result as normal/abnormal. VARICELLA ZOSTER [id number] 17:03:17* Test Item Value Reference Range Interpretation Comme [facility] VARICELLA ZOSTER IgG (test code = 78076) 351 INDEX SEE BELOW INTERPRETATI ON VZV IgG NEGATIVE . . . . . . . . . . . . INDEX <135 EQUIVOCAL. . . . . . . . . . . . INDEX 135-164 NOTE: CONSIDER RETESTING IN A CLINICALLY SUITABLE PERIOD OF TIME, NO SOONER THAN 1-2 WEEKS. POSITIVE . . . . . . . . . . . . INDEX >=165 RUBEOLA IgG [id number] 17:03:17* Test Item Value Reference Range Interpretation Comme [facility] RUBEOLA IgG ANTIBODY (test code = 82999) 20.8 AU/ML SEE BELOW INTERPRETATION R UBEOLA IgG NEGATIVE . . . . . . . . . . . . AU/ML <13.5 EQUIVOCAL. . . . . . . . . . . . AU/ML 13.5-16.4 NOTE: CONSIDER RETESTING IN A CLINICALLY SUITABLE PERIOD OF TIME, NO SOONER THAN 1-2 WEEKS. POSITIVE . . . . . . . . . . . . AU/ML >=16.5 RUBELLA ANTIBODY [id number] 04:26:31* Test Item Value Reference Range Interpretation Comme nts RUBELLA ANTIBODY SCREEN (test code = 4600) 15 IU/ML SEE BELOW INTERPRETATION R UBELLA IgG NON-REACTIVE/NON-IMMUNE . . . . . . . IU/ML <10 REACTIVE/IMMUNE . . . . . . . . . . . IU/ML >=10 RUBELLA IgG INTERP (test code = 34296) REACTIVE REACTIVE UNLESS OTHER AMOS INDICATED, ALL [facility]ING [facility] [address] [place] [address] STONEWORK TRACER: BETTY BETHEA M.D. [place] NUMBER [id number] [place]. [id number] HEPATITIS C [id number] 03:43:29* Test Item Value Reference Range Interpretation Comme nts HEPATITIS C ANTIBODY (test c ode = 4675) NON-REACTIVE NON-REACTIVE
[2023-02-03 19:43] LABS: Albumin 3.7 g/dL (3.4-5.0); Bilirubin Total 0.2 mg/dL (0.2-1.0); Potassium 3.2 mEq/L (3.5-5.1); Protein, Total 7.5 g/dL (6.4-8.2)
[2023-02-03 19:44] LABS: Absolute Lymphocytes (CBC) 4.1 K/uL (0.7-4.9); Hematocrit 37.8 % (36.0-45.0); Lymphocytes % 38.1 % (15.3-44.8); Platelets 318 thou/uL (152-406); RBC Red Blood Cell Count 4.66 M/uL (3.86-4.86)
--- NOTE | 2023-02-03 19:59 | ER ---
Nurse's Notes [facility] Name: Soledad Garcia Age: 27 yrs Sex: Female : 1995 Arrival Date: 02/03/2023 Time: 18:02 Bed 10 Private MD: Diagnosis: GI Bleed/ Gastrointestinal hemorrhage, unspecified Presentation: 02/03 18:21 Chief complaint: Patient states: INTERMITTENT RECTAL BLEEDING X2 MONTHS. Coronavirus bp screen: At this time, the client does not indicate any symptoms associated with coronavirus-19. Ebola Screen: No symptoms or risks identified at this time. Initial Sepsis Screen: Does the patient meet any 2 criteria? No. Patient's initial sepsis screen is negative. Does the patient have a suspected source of infection? No. Patient's initial sepsis screen is negative. Risk Assessment: Do you want to hurt yourself or someone else? Patient reports no desire to harm self or others. Onset of symptoms is unknown. 18:21 Method Of Arrival: Ambulatory bp 18:21 Acuity: LIBERTAD 3 bp Historical: - Allergies: 18:22 Iodine; bp 18:22 Stadol; bp - PMHx: 18:22 acid reflux; GERD; bp - Immunization history:: Adult Immunizations up to date. - Social history:: Smoking status: unknown. Screenin:10 [facility] ED Fall Risk Assessment (Adult) History of falling in the last 3 months, jw7 including since admission No falls in past 3 months (0 pts) Score/Fall Risk Level 0 - 2 = Low Risk Oriented to surroundings, Maintained a safe environment. Abuse screen: Denies threats or abuse. Denies injuries from another. Nutritional screening: No deficits noted. Tuberculosis screening: No symptoms or risk factors identified. Assessment: 19:10 General: Appears in no apparent distress. comfortable, Behavior is calm, cooperative. jw7 Pain: Denies pain. Neuro: Gomes Agitation-Sedation Scale (RASS): 0 - Alert and Calm. Neuro: Level of Consciousness is awake, alert, obeys commands, Oriented to person, place, time, situation. Cardiovascular: Capillary refill < 3 seconds Patient's skin is warm and dry. Respiratory: Airway is patent Trachea midline Respiratory effort is even, unlabored, Respiratory pattern is regular, symmetrical. GI: Abdomen is round non-distended, Bowel sounds present X 4 quads. Reports bloody stool. : No deficits noted. No signs and/or symptoms were reported regarding the genitourinary system. EENT: No deficits noted. No signs and/or symptoms were reported regarding the EENT system. Derm: Skin is intact, is healthy with good turgor, Skin is dry, Skin is normal, Skin temperature is warm. Musculoskeletal: Circulation, motion, and sensation intact. Range of motion: intact in all extremities. 20:02 Reassessment: Patient appears in no apparent distress at this time. No changes from [facility] previously documented assessment. Patient and/or family updated on plan of care and expected duration. Pain level reassessed. Patient is alert, oriented x 3, equal unlabored respirations, skin warm/dry/pink. Vital Signs: 18:21 BP 147 / 99; Pulse 89; Resp 16; Temp 98; Pulse Ox 99% ; Weight 94.35 kg; Height 5 ft. 7 bp in. ; 20:00 BP 142 / 95; Pulse 85; Resp 17 S; Pulse Ox 99% on R/A; jw7 18:21 Body Mass Index 32.58 (94.35 kg, 170.18 cm) bp ED Course: 18:04 Patient arrived in ED. mr 18:10 Med Radha, [place] [facility] kb 18:10 Shubham Stephen DO is Attending Physician. kb 18:22 Triage completed. bp 18:22 Arm band placed on. bp 19:08 Rosalinda Coffman, RN is Primary Nurse. jw7 19:10 Patient has correct armband on for positive identification. Bed in low position. Call [facility] light in reach. 19:19 Initial lab(s) drawn, by nh, sent to lab. Inserted saline lock: 20 gauge in right [facility] antecubital area, using aseptic technique. Blood collected. 20:03 No provider procedures requiring assistance completed. jw7 20:21 Provided Education on: discharge instructions. jw7 20:21 IV discontinued, intact, bleeding controlled, No redness/swelling at site. Pressure jw7 dressing applied. Administered Medications: 19:33 Drug: Pantoprazole IVP 40 mg IVP once Route: IVP; Site: right antecubital; bp 20:03 Follow up: Response: No adverse reaction jw7 Medication: 20:02 VIS not applicable for this client. jw7 Outcome: 19:59 Discharge ordered by MD. johnson 20:21 Discharged to home ambulatory, jw7 20:21 Condition: stable 20:21 Discharge instructions given to patient, Instructed on discharge instructions, follow up and referral plans. Demonstrated understanding of instructions, follow-up care, 20:21 Patient left the ED. jw7 Signatures: Radha Jovel, MELTER SUPERVISOR ELECTRIC [employer] FURNACE-C MELTER SUPERVISOR ELECTRIC ARC FURNACE-CkAbimbola Abdalla, Reg Reg mr Reji Martin, RN RN Rosalinda Perez RN RN jw7
--- NOTE | 2023-02-03 19:59 | EDPHYS ---
Physician Documentation [facility] Name: Soledad Garcia Age: 27 yrs Sex: Female : 1995 Arrival Date: 02/03/2023 Time: 18:02 Bed 10 Private MD: ED Physician Shubham Stephen HPI: 02/03 19:57 This 27 yrs old Female presents to ER via Ambulatory with complaints of Rectal Bleeding.kb 19:57 Patient is a 27-year-old female who presents for rectal bleeding that started 2 months kb ago. States has been intermittent but getting worse. States she had 3 episodes of bleeding today so she came to get checked out. Has an appointment scheduled with Dr. RUIZ Wednesday for colonoscopy for this complaint. Patient denies fever, nausea, vomiting, diarrhea, abdominal pain.. Historical: - Allergies: 18:22 Iodine; bp 18:22 Stadol; bp - PMHx: 18:22 acid reflux; GERD; bp - Immunization history:: Adult Immunizations up to date. - Social history:: Smoking status: unknown. ROS: 19:57 Constitutional: Negative for fever, chills, and weight loss, kb 19:57 Abdomen/GI: Positive for rectal bleeding, 19:57 All other systems are negative, Exam: 19:57 Constitutional: This is a well developed, well nourished patient who is awake, alert, kb and in no acute distress. Head/Face: Normocephalic, atraumatic. ENT: Moist Mucous membranes Cardiovascular: Regular rate Respiratory: Respirations even and unlabored. No increased work of breathing. Talking in full sentences Abdomen/GI: Soft, non-tender. No distention Skin: Warm, dry with normal turgor. Normal color. MS/ Extremity: Pulses equal, no cyanosis. Neurovascular intact. Full, normal range of motion. Neuro: Awake and alert, GCS 15, oriented to person, place, time, and situation. Moves all extremities. Normal gait. Vital Signs: 18:21 BP 147 / 99; Pulse 89; Resp 16; Temp 98; Pulse Ox 99% ; Weight 94.35 kg; Height 5 ft. 7 bp in. ; 20:00 BP 142 / 95; Pulse 85; Resp 17 S; Pulse Ox 99% on R/A; jw7 18:21 Body Mass Index 32.58 (94.35 kg, 170.18 cm) bp MDM: 18:11 Patient medically screened. kb 19:57 Differential diagnosis: hemorrhoids, fissure, GI bleed. Data reviewed: vital signs, kb nurses notes. Consideration of Admission/Observation Escalation of care including admission/observation considered. admission considered for GI bleed, but H\T\H wnl, vss and pt has follow up scheduled for 2 days from now for colonoscopy. Management of patient was discussed with the following: Building Energy Consultant: Dr Vasquez, will see pt outpatient. Counseling: I had a detailed discussion with the patient and/or guardian regarding the historical points, exam findings, and any diagnostic results supporting the discharge/admit diagnosis, lab results, the need for outpatient follow up, a general surgeon, to return to the emergency department if symptoms worsen or persist or if there are any questions or concerns that arise at home. 02/03 18:31 Order name: CBC with Diff; Complete Time: 19:49 kb 02/03 18:31 Order name: CMP; Complete Time: 19:45 kb 02/03 18:31 Order name: IV Saline Lock; Complete Time: 19:20 kb 02/03 18:31 Order name: Labs collected and sent; Complete Time: 19:20 kb Administered Medications: 19:33 Drug: Pantoprazole IVP 40 mg IVP once Route: IVP; Site: right antecubital; bp 20:03 Follow up: Response: No adverse reaction jw7 Disposition: 20:19 I was immediately available on-site in the Emergency Department for consultation in the ms3 care of the patient. Disposition Summary: 02/03/23 19:59 Discharge Ordered Notes: Location: Home kb Condition: Stable kb Diagnosis - GI Bleed/ Gastrointestinal hemorrhage, unspecified kb Followup: kb - With: Emergency Department - When: As needed - Reason: Worsening of condition Followup: kb - With: Private Physician - When: 2 - 3 days - Reason: Recheck today's complaints, Continuance of care, Re-evaluation by your physician Discharge Instructions: - Discharge Summary Sheet kb - Gastrointestinal Bleeding, [id number] kb Forms: - Medication Reconciliation Form kb - Thank You Letter kb - Antibiotic Education kb - Prescription Opioid Use kb - Patient Portal Instructions kb - Leadership Thank You Letter kb Signatures: Dispatcher [employer] Radha Moreau FNP-C FNP-Evy Reji Martin, RN RN bp Shubham Stephen DO DO ms3 Rosalinda Coffman RN jw7
[2023-02-03 20:32] VITALS: TEMP 98; O2SAT 99
[2023-02-03 20:40] VITALS: BP 142/95
== END ==
LOC: ER 18:02
DX: K92.2 Gastrointestinal hemorrhage, unspecified (principal); Z88.5 Allergy status to narcotic agent; Z91.048 Other nonmedicinal substance allergy status
CPT/HCPCS: 85025; 36415; 80053; C9113; 96374; 99284

== ENCOUNTER 2023-02-05 08:55 | Day surgery (SDC) | payer BC ==
[2023-02-05] MEDS: Ringers Lactate 1,000 ML IV ONE ×2 (09:16→11:22)
[2023-02-05] MEDS ORDERED: LIDOCAINE 1% MPF 5 ML VIAL ONE (11:17)
[2023-02-05] MEDS ORDERED: propofoL 200 MG/20 ML VIAL IV ONE (11:17)
[2023-02-05 13:57] VITALS: BP 119/80; TEMP 98.3; O2SAT 100
== END 2023-02-05 12:10 | disposition home or self-care (01) ==
LOC: OR 08:55
PROVIDERS: ATTEND Surgery
PROC: 0DDP8ZX Extraction of Rectum, Via Natural or Artificial Opening Endoscopic, Diagnostic (ICD-10-PCS; 2023-02-05)
PROC: 0DBP8ZX Excision of Rectum, Via Natural or Artificial Opening Endoscopic, Diagnostic (ICD-10-PCS; principal; 2023-02-05 11:15)
DX: K62.5 Hemorrhage of anus and rectum (principal); K64.8 Other hemorrhoids
CPT/HCPCS: 81025; 88305; 45380; J2704; J2001; J7120; 88304

== ENCOUNTER 2024-02-10 18:45 | Emergency (ER) | payer BC, OTHER ==
--- NOTE | 2024-02-10 20:12 | ER ---
Nurse's Notes [facility] Name: Soledad Garcia Age: 28 yrs Sex: Female : 1995 Arrival Date: 02/10/2024 Time: 18:45 Bed 20 Private MD: Diagnosis: Abdominal pain in third trimester of ;34 weeks gestation of Presentation: 02/09 19:03 Chief complaint: Patient states: abdominal pain that radiates to back onset last night. cm10 pt states that the pain had been intermittent and is now constant. pt 34 weeks . Coronavirus screen: Client denies travel out of the [place] in the last 14 days. Ebola Screen: Patient denies travel to an Ebola-affected area in the 21 days before illness onset. No symptoms or risks identified at this time. Initial Sepsis Screen: Does the patient meet any 2 criteria? HR > 90 bpm. Does the patient have a suspected source of infection? No. Patient's initial sepsis screen is negative. Risk Assessment: Do you want to hurt yourself or someone else? Patient reports no desire to harm self or others. Onset of symptoms was February 09, 2024. 19:03 Method Of Arrival: Wheelchair cm10 19:03 Acuity: LIBERTAD 3 cm10 Triage Assessment: 19:07 General: Appears in no apparent distress. uncomfortable, Behavior is calm, cooperative. cm10 Neuro: No deficits noted. Level of Consciousness is awake, alert, obeys commands, Oriented to person, place, time, situation, Appropriate for age. Respiratory: No deficits noted. Airway is patent Respiratory effort is even, unlabored, Respiratory pattern is regular, symmetrical. 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 - Infectious Disease History:: Denies. - Social history:: Smoking status: Patient denies any tobacco usage or history of. Screenin:00 [facility] ED Fall Risk Assessment (Adult) History of falling in the last 3 months, me1 including since admission No falls in past 3 months (0 pts) Confusion or Disorientation No (0 pts) Intoxicated or Sedated No (0 pts) Impaired Gait No (0 pts) Mobility Assist Device Used No (0 pt) Altered Elimination No (0 pt) Score/Fall Risk Level 0 - 2 = Low Risk Maintained a safe environment, Provided non-skid footwear, Hourly rounding (assess needs \T\ fall precautionary measures) done. Abuse screen: Denies threats or abuse. Nutritional screening: No deficits noted. Tuberculosis screening: No symptoms or risk factors identified. Assessment: 19:00 General: Appears uncomfortable, well groomed, well developed, well nourished, Behavior me1 is calm, cooperative, appropriate for age, Reports abdominal pain that radiates to back onset last night. pt states that the pain had been intermittent and is now constant. pt 34 weeks . Pain: Complains of pain in left low back, right low back and abdomen Pain does not radiate. Pain currently is 5 out of 10 on a pain scale. Quality of pain is described as crampy, Pain began 1 day ago. Is intermittent. Neuro: Level of Consciousness is awake, alert, obeys commands, Oriented to person, place, time, situation, Appropriate for age. Cardiovascular: Patient's skin is warm and dry. Respiratory: Airway is patent Respiratory effort is even, unlabored, Respiratory pattern is regular, symmetrical. GI: No signs and/or symptoms were reported involving the gastrointestinal system. : No signs and/or symptoms were reported regarding the genitourinary system. EENT: No signs and/or symptoms were reported regarding the EENT system. Derm: Skin is intact, is healthy with good turgor, Skin is pink, warm \T\ dry. Musculoskeletal: No signs and/or symptoms reported regarding the musculoskeletal system. Vital Signs: 19:03 BP 132 / 86; Pulse 114; Resp 18; Temp 97.2(TE); Pulse Ox 99% on R/A; Weight 97.52 kg; cm10 Height 5 ft. 7 in. ; Pain 6/10; 20:09 BP 128 / 81; Pulse 99; Resp 17; Temp 98.1; Pulse Ox 99% ; me1 19:03 Body Mass Index 33.67 (97.52 kg, 170.18 cm) cm10 19:03 Pain Scale: Adult cm10 Vitals: 19:55 Heart Tones 154 beats per minute. me1 ED Course: 18:47 Patient arrived in ED. ra3 19:00 Patient has correct armband on for positive identification. Bed in low position. Call me1 light in reach. Side rails up X2. Provided Education on: POC. Verbalized understanding.. Client placed on continuous cardiac and pulse oximetry monitoring. NIBP monitoring applied. Pulse ox on. NIBP on. 19:00 No provider procedures requiring assistance completed. Patient did not have IV access me1 during this emergency room visit. 19:06 Triage completed. cm10 19:06 Arm band placed on right wrist. Patient placed in an exam room, on a stretcher. cm10 19:15 Isa Phan, RN is Primary Nurse. me1 19:42 Patience Mi MD is Attending Physician. sd2 Administered Medications: No medications were administered Medication: 19:00 VIS not applicable for this client. me1 Outcome: 20:11 Discharge ordered by MD. sd2 20:17 Discharged to home ambulatory, me1 20:17 Condition: stable 20:17 Discharge instructions given to patient, Instructed on discharge instructions, follow up and referral plans. Demonstrated understanding of instructions, follow-up care, 20:17 Patient left the ED. me1 Signatures: Patience Mi MD MD sd2 Brianda Valle RN RN cm10 Isa Phan, ELISABET RN me1 Paris Wright ra3 Corrections: (The following items were deleted from the chart) 19:56 19:03 Chief complaint: Patient states: abdominal pain that radiates to back onset last me1 night. pt states that the pain had been intermittent and is now constant. pt 34 weeks . cm10
--- NOTE | 2024-02-10 20:12 | EDPHYS ---
Physician Documentation [facility] Name: Soledad Garcia Age: 28 yrs Sex: Female : 1995 Arrival Date: 02/10/2024 Time: 18:45 Bed 20 Private MD: ED Physician Patience Mi HPI: 02/09 19:53 This 28 yrs old Female presents to ER via Wheelchair with complaints of 34 wks preg vag sd2 pressure low back and abd pain. 19:53 28 yo at 34 weeks gestation presents with CC of vaginal pressure and low back and sd2 lower abdominal pain that started a couple of hours ago. Denies bleeding, leakage of fluid, discharge or any other concerning symptoms. Pt's OBGYN is located at [facility] in [place]. . 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 - Infectious Disease History:: Denies. - Social history:: Smoking status: Patient denies any tobacco usage or history of. ROS: 19:53 Constitutional: Negative for fever, chills, and weight loss, Cardiovascular: Negative sd2 for chest pain, palpitations, and edema, Respiratory: Negative for shortness of breath, cough, wheezing. 19:53 : Negative for dysuria, urinary frequency, hesitancy, urgency and hematuria. MS/Extremity: Negative for injury and deformity, Skin: Negative for injury, rash, and discoloration, 19:53 Abdomen/GI: Positive for abdominal pain, Negative for nausea, vomiting, diarrhea, Exam: 19:53 Constitutional: This is a well developed, well nourished patient who is awake, alert, sd2 and in no acute distress. Head/Face: Normocephalic, atraumatic. Eyes: EOMI, normal conjunctiva bilaterally Chest/axilla: Normal chest wall appearance and motion. Nontender with no deformity. Cardiovascular: Regular rate and rhythm with a normal S1 and S2. No gallops, murmurs, or rubs. 2+ distal pulses. Respiratory: Lungs have equal breath sounds bilaterally, clear to auscultation and percussion. No rales, rhonchi or wheezes noted. No increased work of breathing, no retractions or nasal flaring. Abdomen/GI: Soft, non-tender, with normal bowel sounds. No guarding or rebound. No evidence of tenderness throughout. Gravid abdomen. No uterine tenderness. Pelvic Exam: Normal external genitalia. Bimanual exam with normal adnexa, no adnexal or cervical motion tenderness. Gravid uterus. Approximately 1 cm dilated. Skin: Warm, dry with normal turgor. Normal color with no rashes, no lesions, and no evidence of cellulitis. MS/ Extremity: Pulses equal, no cyanosis. Neurovascular intact. Full, normal range of motion. Psych: Awake, alert, with orientation to person, place and time. Behavior, mood, and affect are within normal limits. Vital Signs: 19:03 BP 132 / 86; Pulse 114; Resp 18; Temp 97.2(TE); Pulse Ox 99% on R/A; Weight 97.52 kg; cm10 Height 5 ft. 7 in. ; Pain 6/10; 20:09 BP 128 / 81; Pulse 99; Resp 17; Temp 98.1; Pulse Ox 99% ; me1 19:03 Body Mass Index 33.67 (97.52 kg, 170.18 cm) cm10 19:03 Pain Scale: Adult cm10 MDM: 18:54 Medical Screening Exam initiated sd2 19:53 Differential Diagnosis active labor, labor, UTI, BV, David-Crook among sd2 others. Data reviewed: vital signs, nurses notes. Counseling: I had a detailed discussion with the patient and/or guardian regarding the historical points, exam findings, and any diagnostic results supporting the discharge/admit diagnosis, Discussed need for transfer due to no OBGYN at our facility or ways to obtain toco monitoring for contractions to determine if she is in labor or not. Pt after discussion of risks and benefits has declined transfer and urine testing. FHTs 154 bpm. She verbalizes understanding of the risks of not ruling out labor and states she will go to [place] or call 911 if symptoms worsen overnight. She verbalizes understanding of risks and understands she may change her mind and return at any time for further evaluation.. 02/09 19:43 Order name: Heart Tones; Complete Time: 19:54 sd2 Administered Medications: No medications were administered Disposition Summary: 02/10/24 20:11 Discharge Ordered Problem: new sd2 Symptoms: have improved sd2 Condition: Stable sd2 Diagnosis - Abdominal pain in third trimester of sd2 - 34 weeks gestation of sd2 Followup: sd2 - With: Private Physician - When: Upon discharge from the Emergency Department - Reason: Discharge Instructions: - Discharge Summary Sheet sd2 - Abdominal Pain During sd2 - Third Trimester of sd2 Forms: - Medication Reconciliation Form sd2 - Antibiotic Education sd2 - Prescription Opioid Use sd2 - Patient Portal Instructions sd2 - Leadership Thank You Letter sd2 Signatures: Patience Mi MD MD sd2 Brianda Valle RN RN cm10
[2024-02-10 20:23] VITALS: O2SAT 99
[2024-02-10 20:24] VITALS: BP 128/81; TEMP 98.1
== END 2024-02-10 20:17 | disposition home or self-care (01) ==
LOC: ER 18:45
DX: O26.893 Other specified pregnancy related conditions, third trimester (principal); Z3A.34 34 weeks gestation of pregnancy
CPT/HCPCS: 99283